=== PATIENT | male | born 1965 | race Caucasian/White ===

== ENCOUNTER 2017-07-23 13:22 | Inpatient (IN) ==
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
--- OUTSIDE RECORDS SUMMARY | 2017-07-23 13:33 | External Medical Summary ---
:1965 Author Organization [facility] Address [address] [place] [address] Phone [phone] Care Team Providers Name Role Phone Jem, Millie Unavailable Unavailable PROBLEMS Unknown Problems ALLERGIES Unknown Allergies SOCIAL HISTORY No smoking Hx information available PLAN OF CARE VITAL SIGNS MEDICATIONS Medication Instructions Dosage Frequency Start Date End Date Duration Status Sertraline HCl Orally Once a day 1 tablet 30 days Active 100 MG for depression RESULTS No Results PROCEDURES No Known procedures IMMUNIZATIONS No Known Immunizations
--- OUTSIDE RECORDS SUMMARY | 2017-07-23 13:33 | External Medical Summary | Referral Summary ---
:1965 Author [facility] Address [address] [place] [address] [place] Fernandez [address] Care Team Providers Name Role Phone Brian Olivares Primary Care Physician Encounter VC Date(s): 08/08/14 - 08/08/14 [facility] [place] [phone] [place] Discharge Diagnosis: Hand swelling Discharge Diagnosis: Cellulitis and abscess of hand, except fingers and thumb Discharge Disposition: 01-Home or Self Care Attending Physician: Brian Olivares MD Admitting Physician: Brian Olivares MD Vital Signs Most recent to oldest [Reference Range]: 1 Blood Pressure [90-140/60-90 mmHg] 128/78 mmHg (08/08/14 1:31 PM) Problem List Condition Effective Dates Status Health [...] Daily, # 30 tabs, 0 Refill(s), Pharmacy: [facility] # [id number], 1 tabs Oral Daily Start Date: 02/11/15 Status: Orderedcitalopram 20 mg oral tablet mg tabs, Oral, Daily, PT REPORTS HE TAKE 20 MG WITH A 40 MG QD., 0 Refill(s) Start Date: 01/27/15 Status: Orderedcitalopram 40 mg oral tablet See Instructions, TAKE ONE TABLET BY MOUTH EVERY DAY, # 30 tabs, 1 Refill(s), [facility] #[id number], TAKE ONE TABLET BY MOUTH EVERY DAY Start Date: 04/07/14 Status: Orderedlisinopril 20 mg oral tablet See Instructions, TAKE ONE TABLET BY MOUTH EVERY DAY, # 30 tabs, 5 Refill(s), eRx: [facility] #[id number], TAKE ONE TABLET BY MOUTH EVERY DAY Start Date: 10/20/14 Status: OrderedMobic 7.5 mg oral tablet 7.5 mg 1 tabs, Oral, BID, # 60 tabs, 0 Refill(s), Pharmacy: [facility] # [id number], 1 tabs Oral BID Start Date: 01/27/15 Status: OrderedNorco 7.5 mg-325 mg oral tablet 1 tabs, Oral, q4hr, as needed for pain, # 60 tabs, 0 Refill(s) Start Date: 02/16/15 Status: OrderedProAir RespiClick 90 mcg/inh inhalation powder 1 puffs, Inhalation, QID, as needed for wheezing., # 1 Each, 2 Refill(s), Pharmacy: [facility]#[id number] Start Date: 01/21/15 Status: OrderedStiolto Respimat Stiolto [...] Extracted from: Title: Ambulatory Patient Education Author: Brian Olivares MD Date: 08/10/14 Family Medicine Cellulitis Cellulitis is an infection of the skin and the tissue beneath it. The infected area is usually red and tender. Cellulitis occurs most often in the arms and lower legs. CAUSES Cellulitis is caused by bacteria that enter the skin through cracks or cuts in the skin. The most common types of bacteria that cause cellulitis are Staphylococcus and Streptococcus. SYMPTOMS Redness and warmth. Swelling. Tenderness or pain. Fever. DIAGNOSIS Your caregiver can usually determine what is wrong based on a physical exam. Blood tests may also be done. TREATMENT Treatment usually involves taking an antibiotic medicine. HOME CARE INSTRUCTIONS Take your antibiotics as directed. Finish them even if you start to feel better. Keep the infected arm or leg elevated to reduce swelling. Apply a warm cloth to the affected area up to 4 times per day to relieve pain. Only take [id number] or prescription medicines for pain, discomfort , or fever as directed by your caregiver. Keep all follow-up appointments as directed by your caregiver. SEEK MEDICAL CARE IF: You notice red streaks coming from the infected area. Your red area gets larger or turns dark in color. Your bone or joint underneath the infected area becomes painful after the skin has healed. Your infection returns in the same area or another area. You notice a swollen bump in the infected area. You develop new symptoms. SEEK IMMEDIATE MEDICAL CARE IF: You have a fever. You feel very sleepy. You develop vomiting or diarrhea. You have a general ill feeling (malaise ) with muscle aches and pains. MAKE SURE YOU: Understand these instructions. Will watch your condition. Will get help right away if you are not doing well or get worse. Document Released: 11/30/2005 Document Revised: 08/21/2012 Document Reviewed: 05/07/2012 [employer] Patient Information 2014 [employer]. No follow up information was provided. Extracted from: Title: Office Visit Note Author: Brian Olivares MD Date: 08/08/14 Assessment/Plan Cellulitis and abscess of hand, except fingers and thumb Will start the patient on Keflex and Medrol dose pack and recheck with him next week. Ordered: Office Visit Level 3 Est 97460 Hand swelling Ordered: Office Visit Level 3 Est 77234
--- OUTSIDE RECORDS SUMMARY | 2017-07-23 13:33 | External Medical Summary | Referral Summary ---
:1965 Author Organization [facility] Address [address] [place] [address] Care Team Providers Name Role Phone Olivares Brian Thompson Primary Care Physician Encounter VC Date(s): 05/21/15 - 05/21/15 [facility] [address] [place] [address] Discharge Disposition: 01-Home or Self Care Attending Physician: Rosalio Siddiqi MD Admitting Physician: Rosalio Siddiqi MD Vital Signs Most recent to oldest [Reference Range]: 1 Temperature Temporal Artery [36.3-37.8 degC] 37.1 degC (05/21/15 7:36 AM) Peripheral Pulse Rate [60-100 bpm] 114 bpm *HI* (05/21/15 7:36 AM) Heart Rate Monitored [60-100 bpm] 107 bpm *HI* (05/21/15 9:30 AM) Respiratory Rate [14-20 br/min] 24 br/min *HI* (05/21/15 9:30 AM) Blood Pressure [90-140/60-90 mmHg] 174/116 mmHg *HI* (05/21/15 9:30 AM) Mean Arterial Pressure, Cuff 135 mmHg (05/21/15 9:30 AM) SpO2 98 % (05/21/15 9:30 AM) Problem List Condition Effective Dates Status [...] Daily, # 30 tabs, 0 Refill(s), Pharmacy: [facility] # [id number], 1 tabs Oral Daily Start Date: 02/11/15 Status: Orderedazithromycin 250 mg oral tablet See Instructions, Take 1 tab Mon, Mon, and Monday, # 12 tabs, 3 Refill(s), Pharmacy: [facility] #[id number], Take 1 tab Mon, Mon, and Monday Start Date: 05/21/15 Status: Orderedcitalopram 20 mg oral tablet mg tabs, Oral, Daily, PT REPORTS HE TAKE 20 MG WITH A 40 MG QD., 0 Refill(s) Start Date: 01/27/15 Status: Orderedcitalopram 40 mg oral tablet See Instructions, TAKE ONE TABLET BY MOUTH EVERY DAY, # 30 tabs, 0 Refill(s), Pharmacy: [facility] #[id number], Pt needs appointment before additional refills will be sent., TAKE ONE TABLET BY MOUTH EVERY DAY Start Date: 04/14/15 Status: Orderedgabapentin 300 mg oral capsule 300 mg 1 caps, Oral, TID, # 270 caps, 0 Refill(s), Pharmacy: [facility], 1 caps Oral TID Start Date: 05/19/15 Status: Orderedindomethacin 25 mg oral capsule See Instructions, TAKE ONE CAPSULE BY MOUTH THREE TIMES A DAY WITH FOOD, # 30 caps, eRx: [facility] #[id number], TAKE ONE CAPSULE BY MOUTH THREE TIMES A DAY WITH FOOD Start Date: 02/19/15 Status: Orderedlisinopril 20 mg oral tablet See Instructions, TAKE ONE TABLET BY MOUTH EVERY DAY, # 30 tabs, 0 Refill(s), Pharmacy: [facility] #[id number] Start Date: 04/14/15 Status: OrderedMobic 7.5 mg oral tablet 7.5 mg 1 tabs, Oral, BID, # 60 tabs, 0 Refill(s), Pharmacy: [facility] # [id number], 1 tabs Oral BID Start Date: 01/27/15 Status: OrderedpredniSONE 20 mg oral tablet See Instructions, 3 tabs x 3days; 2 tabs x3 days; 1 tab x3 days, # 18 tabs, 0 Refill(s), Pharmacy: [facility] #[id number], 3 tabs x 3days; 2 tabs x3 days; 1 tab x3 days Start Date: 05/01/15 Status: OrderedpredniSONE 20 mg oral tablet See Instructions, 3 tabs x 3days; 2 tabs x3 days; 1 tab x3 days, # 18 tabs, 0 Refill(s), Pharmacy: [facility] #[id number], 3 tabs x 3days; 2 tabs x3 days; 1 tab x3 days Start Date: 03/10/15 Status: OrderedSymbicort 160 mcg-4.5 mcg/inh inhalation aerosol 2 puffs, Inhalation, BID, # 1 Each, 0 Refill(s), samples given to patient (Rx) Start Date: 05/11/15 Status: OrderedZocor 40 mg oral tablet 1 tabs, Oral, Bedtime (once a day), # 30 tabs, 0 Refill(s) Start Date: 08/22/13 Status: Ordered Results No data available for this section Immunizations Vaccine Date Refusal Reason tetanus/diphth/pertuss (Tdap) adult/adol 08/05/10 Procedures Procedure Date Related Diagnosis Body Site Bronchoscopy - SN1 05/21/15 Open reduction and internal fixation of fracture - right 5th metacarpal 1auto-populated from documented surgical case Social History Social History Type Response Smoking Status Never smoker Assessment and Plan No data available for this section
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
--- OUTSIDE RECORDS SUMMARY | 2017-07-23 13:34 | External Medical Summary | Referral Summary ---
:1965 Author [facility] Address [address] [place] [address] [place] Fernandez [address] Care Team Providers Name Role Phone Brian Olivares Primary Care Physician Encounter VC Date(s): 03/04/15 - 03/04/15 [facility] [place] [phone] [place] Discharge Diagnosis: Pain in right foot Discharge Disposition: 01-Home or Self Care Attending Physician: Liz Kim PA-C Admitting Physician: Liz Kim PA-C Vital Signs Most recent to oldest [Reference Range]: 1 Apical Heart Rate [60-100 bpm] 96 bpm (03/04/15 9:26 AM) Blood Pressure [90-140/60-90 mmHg] 144/98 mmHg *HI* (03/04/15 9:26 AM) Problem List Condition Effective Dates Status [...] Daily, # 30 tabs, 0 Refill(s), Pharmacy: [facility] # [id number], 1 tabs Oral Daily Start Date: 02/11/15 Status: Orderedcitalopram 20 mg oral tablet mg tabs, Oral, Daily, PT REPORTS HE TAKE 20 MG WITH A 40 MG QD., 0 Refill(s) Start Date: 01/27/15 Status: Orderedcitalopram 40 mg oral tablet See Instructions, TAKE ONE TABLET BY MOUTH EVERY DAY, # 30 tabs, 1 Refill(s), eRx: [facility] #[id number], TAKE ONE TABLET BY MOUTH EVERY DAY Start Date: 04/07/14 Status: Orderedindomethacin 25 mg oral capsule See Instructions, TAKE ONE CAPSULE BY MOUTH THREE TIMES A DAY WITH FOOD, # 30 caps, eRx: [facility] #[id number], TAKE ONE CAPSULE BY MOUTH THREE TIMES A DAY WITH FOOD Start Date: 02/19/15 Status: OrderedKeflex 500 mg oral capsule 500 mg 1 caps, Oral, QID, Patient is to call with report in 48 hours., X 10 days , # 40 caps, 0 Refill(s), Pharmacy: [facility] #[id number], 1 caps Oral QID, x10 days,Instr:Patient is to call with report in 48 hours. Start Date: 02/24/15 Stop Date: 03/06/15 Status: Orderedlisinopril 20 mg oral tablet See Instructions, TAKE ONE TABLET BY MOUTH EVERY DAY, # 30 tabs, 5 Refill(s), eRx: [facility] #[id number], TAKE ONE TABLET BY MOUTH EVERY DAY Start Date: 10/20/14 Status: OrderedMobic 7.5 mg oral tablet 7.5 mg 1 tabs, Oral, BID, # 60 tabs, 0 Refill(s), Pharmacy: [facility] # [id number], 1 tabs Oral BID Start Date: 01/27/15 Status: OrderedNorco 7.5 mg-325 mg oral tablet 1 tabs, Oral, q4hr, as needed for pain, # 60 tabs, 0 Refill(s) Start Date: 02/16/15 Status: OrderedProAir RespiClick 90 mcg/inh inhalation powder 1 puffs, Inhalation, QID, as needed for wheezing., # 1 Each, 2 Refill(s), Pharmacy: [facility]#[id number] Start Date: 01/21/15 Status: OrderedStiolto Respimat Stiolto [...] Patient Education Author: Liz Kim PA-C Date: 03/04/15 Home Health Care Cellulitis Cellulitis is an [...] 11/30/2005 Document Revised: 07/07/2014 Document Reviewed: 05/07/2012 [facility] Patient Information 2015 [employer] [facility]. This information is not intended to replace advice given to you by your health care provider. Make sure you discuss any questions you have with your health care provider. No follow up information was provided. Extracted from: Title: Office Visit Note Author: Liz Kim PA-C Date: 03/04/15 Assessment/Plan Pain in right foot The foot does look much better than it had a couple weeks ago. He still has some pain to the foot, though. Will have him increase to the prescribed QID on the Keflex until gone. He can also continue with the Allopurinol and Indomethacin. Will try a Medrol Dose Pack now, to see if this helps. Also advised to rest it, and ice the area. Call if not improving. Ordered: Office Visit Level 3 Est 49921
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
--- OUTSIDE RECORDS SUMMARY | 2017-07-23 13:34 | External Medical Summary ---
:1965 Author Organization [facility]. Summary purpose CCDA Sent to [facility] Chief Complaint and Reason for Visit Admit Diagnosis 1 htn Problem list No authorized problems tracked for continuity of care are available for this visit. Encounters No authorized problems tracked for encounter diagnoses are available for this visit. Medications No medications recorded for this patient visit Allergies, adverse reactions, alerts No allergy information is available for this patient. Immunizations No immunizations recorded for this patient visit Relevant diagnostic tests and/or laboratory data No authorized results are available for this patient visit History of procedures No procedures recorded for this patient visit. Functional status No functional or cognitive status observations are available for this visit. Vital signs No authorized vital signs are available for this visit. Social history No Social History or smoking status observations were recorded for this visit. ( Unknown if ever smoked.) Treatment Plan No treatment plan text is available for this visit. Hospital discharge instructions No discharge instruction text is available for this visit.
--- OUTSIDE RECORDS SUMMARY | 2017-07-23 13:34 | External Medical Summary ---
:1965 Author Organization [facility] Address [address] [place] [address] Phone [phone] Care Team Providers Name Role Phone JemMillie [...]
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
--- OUTSIDE RECORDS SUMMARY | 2017-07-23 13:34 | External Medical Summary | Referral Summary ---
:1965 Author Organization [facility] Address [address] [place] [address] Care Team Providers Name Role Phone Olivares Brian Jay Primary Care Physician Encounter VC Date(s): 05/11/15 - 05/11/15 [facility] [address] [place] [address] [place] Discharge Diagnosis: Inspiratory stridor Discharge Diagnosis: Obesity Discharge Diagnosis: Shortness of breath Discharge Disposition: -Home or Self Care Attending Physician: Rosalio Siddiqi MD Admitting Physician: Rosalio Siddiqi MD Vital Signs Most recent to oldest [Reference Range]: 1 Peripheral Pulse Rate [60-100 bpm] 116 bpm *HI* (05/11/15 2:50 PM) Respiratory Rate [14-20 br/min] 32 br/min *HI* (05/11/15 2:50 PM) Blood Pressure [90-140/60-90 mmHg] 108/70 mmHg (05/11/15 2:50 PM) SpO2 96 % (05/11/15 2:50 PM) Problem List Condition Effective Dates Status [...] Pharmacy: [facility] # [id number], 1 tabs Oral Daily Start Date: 02/11/15 Status: Orderedcitalopram 20 mg oral tablet mg tabs, Oral, Daily, PT REPORTS HE TAKE 20 MG WITH A 40 MG QD., 0 Refill(s) Start Date: 01/27/15 Status: Orderedcitalopram 40 mg oral tablet See Instructions, TAKE ONE TABLET BY MOUTH EVERY DAY, # 30 tabs, 0 Refill(s), Pharmacy: [facility] #[id number], Pt needs appointment before additional refills will be sent., TAKE ONE TABLET BY MOUTH EVERY DAY Start Date: 04/14/15 Status: Orderedgabapentin 300 mg oral capsule See Instructions, Take 1 cap PO QD x 2 days, 1 cap PO BID x 2 days, then 1 caps Oral TID, # 90 caps,0 Refill(s), Pharmacy: [facility] #[id number], Take 1 cap PO QD x 2 days, 1 cap PO BID x 2 days, then 1 caps Oral TID Start Date: 05/01/15 Status: Orderedindomethacin 25 mg oral capsule See Instructions, TAKE ONE CAPSULE BY MOUTH THREE TIMES A DAY WITH FOOD, # 30 caps, eRx: [facility] #[id number], TAKE ONE CAPSULE BY MOUTH THREE TIMES A DAY WITH FOOD Start Date: 02/19/15 Status: Orderedlisinopril 20 mg oral tablet See Instructions, TAKE ONE TABLET BY MOUTH EVERY DAY, # 30 tabs, 0 Refill(s), Pharmacy: [facility] #[id number] Start Date: 04/14/15 Status: OrderedMobic 7.5 mg oral tablet 7.5 mg 1 tabs, Oral, BID, # 60 tabs, 0 Refill(s), Pharmacy: [facility] # [id number], 1 tabs Oral BID Start Date: 01/27/15 Status: OrderedpredniSONE 20 mg oral tablet See Instructions, 3 tabs x 3days; 2 tabs x3 days; 1 tab x3 days, # 18 tabs, 0 Refill(s), Pharmacy: [facility] #[id number], 3 tabs x 3days; 2 tabs x3 days; 1 tab x3 days Start Date: 05/01/15 Status: OrderedpredniSONE 20 mg oral tablet See Instructions, 3 tabs x 3days; 2 tabs x3 days; 1 tab x3 days, # 18 tabs, 0 Refill(s), Pharmacy: [facility] #[id number], 3 tabs x 3days; 2 tabs x3 [...] and Plan Extracted from: Title: Office Visit Note Author: Rosalio Siddiqi MD Date: 05/11/15 Assessment/Plan Inspiratory stridor 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 Shortness of breath likely due to airway obstructiion and restriction from obesity. He notes some improvement iwth symbicort, previously. will have him on symbicort. Orders: budesonide-formoterol, 2 puffs, Inhalation, BID, # 1 Each, 0 Refill(s ), samples given to patient (Rx) I have reviewed the patientsradiology and imaging results I have reviewed old records I have reviewed the literature I have discussed the plan of care with the patient
--- OUTSIDE RECORDS SUMMARY | 2017-07-23 13:34 | External Medical Summary ---
:1965 Author Organization [facility] Address [address] [place] [address] Phone [phone] Care Team Providers Name Role Phone Millie Parish Unavailable Unavailable PROBLEMS Unknown Problems ALLERGIES No Known Allergies SOCIAL HISTORY Never Assessed PLAN OF CARE Activity Details Follow Up as scheduled Reason:null VITAL SIGNS Height 67 in 2016-11-25 Weight 253 lbs 8 oz lbs 2016-11-25 BMI 39.70 kg/m2 2016-11-25 Heart Rate 99 /min 2016-11-25 Temperature 97.7 degrees Fahrenheit 2016-11-25 Blood pressure systolic 125 mm Hg 2016-11-25 Blood pressure diastolic 86 mm Hg 2016-11-25 MEDICATIONS Medication Instructions Dosage Frequency Start Date End Date Duration Status tramadol 50mg orally as needed Dec, 30 days Active every 12 hours 2016 Lisinopril 20 Orally Once a day 1 tablet 24h 30 days Active MG Sertraline HCl Orally Once a day 1 [...]
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
--- OUTSIDE RECORDS SUMMARY | 2017-07-23 13:34 | External Medical Summary ---
:1965 Author Organization [facility] Address [address] [place] [address] Phone [phone] Care Team Providers Name Role Phone Millie Parish Unavailable Unavailable PROBLEMS Unknown Problems ALLERGIES Unknown Allergies SOCIAL HISTORY No smoking Hx information available PLAN OF CARE VITAL SIGNS MEDICATIONS Medication Instructions Dosage Frequency Start End Date Duration Status Date tramadol 50mg orally as needed 1 tab 7 Dec, 30 days Active every 6 hours every 12 2017 hours as needed Sertraline HCl Orally Once a day 1 tablet 24h Active 100 MG Lisinopril 20 Orally Once a day 1 tablet 24h 30 days Active MG RESULTS No Results PROCEDURES No Known procedures IMMUNIZATIONS No Known Immunizations
--- OUTSIDE RECORDS SUMMARY | 2017-07-23 13:34 | External Medical Summary ---
:1965 Author Organization [facility] Address [address] [place] [address] Phone [phone] Care Team Providers Name Role Phone JemMillie albarado Unavailable Unavailable PROBLEMS Unknown Problems ALLERGIES Unknown Allergies SOCIAL HISTORY No smoking Hx information available PLAN OF CARE VITAL SIGNS MEDICATIONS Medication Instructions Dosage Frequency Start Date End Date Duration Status tramadol 50mg orally as needed Dec, 30 days Active every 12 hours 2016 RESULTS No Results PROCEDURES No Known procedures IMMUNIZATIONS No Known Immunizations
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
--- OUTSIDE RECORDS SUMMARY | 2017-07-23 13:34 | External Medical Summary | Referral Summary ---
:1965 Author [facility] Address [address] [place] [address] [place] [address] Care Team Providers Name Role Phone Brian Olivares Primary Care Physician Encounter VC Date(s): 12/02/14 - 12/02/14 [facility] [address] [place] [phone] Discharge Disposition: [...] Daily, # 30 tabs, 0 Refill(s), [facility] [id number], 1 tabs Oral Daily Start Date: 02/11/15 Status: Orderedazithromycin 250 mg oral tablet See Instructions, Take 1 tab Mon, Mon, and Monday, # 12 tabs, 3 Refill(s), [facility]: [facility] #[id number], Take 1 tab Mon, Mon, and Monday Start Date: 05/21/15 Status: Orderedcitalopram 40 mg oral tablet See Instructions, TAKE ONE TABLET BY MOUTH EVERY DAY, # 30 tabs, [facility]Rx: [facility] #[id number], TAKEONE TABLET BY MOUTH EVERY DAY Start Date: 06/05/15 Status: Orderedgabapentin 300 mg oral capsule 300 mg 1 caps, Oral, TID, # 270 caps, 0 Refill(s), [facility]: [facility], 1 caps Oral TID Start Date: 05/19/15 Status: Orderedindomethacin 25 mg oral capsule See Instructions, TAKE ONE CAPSULE BY MOUTH THREE TIMES A DAY WITH FOOD, # 30 caps, eRx: [facility] #[id number], TAKE ONE CAPSULE BY MOUTH THREE TIMES A DAY WITH FOOD Start Date: 02/19/15 Status: Orderedlisinopril 20 mg oral tablet See Instructions, TAKE ONE TABLET BY MOUTH EVERY DAY, # 30 tabs, 0 Refill(s), Pharmacy: [facility] #[id number] Start Date: 04/14/15 Status: OrderedMobic 7.5 mg oral tablet 7.5 mg 1 tabs, Oral, BID, # 60 tabs, 0 Refill(s), Pharmacy: [facility] # [id number], 1 tabs Oral BID Start Date: 01/27/15 Status: OrderedpredniSONE 20 mg oral tablet See Instructions, 3 tabs x 3days; 2 tabs x3 days; 1 tab x3 days, # 18 tabs, 0 Refill(s), Pharmacy: [facility] #[id number], 3 tabs x 3days; 2 tabs x3 days; 1 tab x3 days Start Date: 05/01/15 Status: OrderedpredniSONE 20 mg oral tablet See Instructions, 3 tabs x 3days; 2 tabs x3 days; 1 tab x3 days, # 18 tabs, 0 Refill(s), Pharmacy: [facility] #[id number], 3 tabs x 3days; 2 tabs x3 [...] 11/30/2005 Document Revised: 07/07/2014 Document Reviewed: 05/07/2012 [facility] Patient Information 2015 [employer] [facility]. This information is not intended to replace [...] arm. Ordered: Office Visit Level 3 Est 04106 Sedimentation Rate Slings A4565 Uric Acid Cellulitis of hand Ordered: CBC w/ Differential Office Visit Level 3 Est 68864 Slings A4565 Orders: ciprofloxacin, 500 mg 1 tabs, Oral, q12hr, X 10 days, # 20 tabs, 0 Refill(s) HYDROcodone-acetaminophen, 1 tabs, Oral, q4hr, as needed for pain, # 60 tabs , 0 Refill(s)
--- OUTSIDE RECORDS SUMMARY | 2017-07-23 13:34 | External Medical Summary ---
:1965 Author Organization [facility] Address [address] [place] [address] Phone [phone] Care Team Providers Name Role Phone Millie Parish Unavailable Unavailable PROBLEMS Unknown Problems ALLERGIES Unknown Allergies SOCIAL HISTORY No smoking Hx information available PLAN OF CARE VITAL SIGNS MEDICATIONS Medication Instructions Dosage Frequency Start End Date Duration Status Date tramadol 50mg orally as needed 1 tab 7 Dec, 30 days Active every 6 hours every 12 2017 hours as needed Lisinopril 20 Orally Once a day 1 tablet 24h 30 days Active MG RESULTS No Results PROCEDURES No Known procedures IMMUNIZATIONS No Known Immunizations
--- OUTSIDE RECORDS SUMMARY | 2017-07-23 13:34 | External Medical Summary | Referral Summary ---
:1965 Author [facility] Address [address] [place] [address] [place] [phone] Care Team Providers Name Role Phone Brian Olivares Primary Care Physician Encounter VC Date(s): 06/29/16 - 06/29/16 [facility] [address] [place] [phone]- Discharge Diagnosis: Generalized rash Discharge Disposition: 01-Home or Self Care Attending Physician: Liz Kim PA-C Admitting Physician: Liz Kim PA-C Vital Signs Most recent to oldest [Reference Range]: 1 Temperature Tympanic [36.6-38.1 degC] 36.8 degC (06/29/16 1:38 PM) Apical Heart Rate [60-100 bpm] 100 bpm (06/29/16 1:38 PM) Blood Pressure [90-140/60-90 mmHg] 142/84 mmHg *HI* (06/29/16 1:38 PM) Problem List Condition Effective Dates Status [...] DAILY, # 30 tabs, 1 Refill(s), eRx: [facility] #[id number], TAKE ONE TABLET BY MOUTH DAILY Start Date: 09/18/15 Status: Orderedcitalopram 20 mg oral tablet 20 mg 1 tabs, Oral, Daily, take a 20 mg and a 40 mg qd + 60 mg qd, 0 Refill(s) Start Date: 06/29/16 Status: Orderedcitalopram 40 mg oral tablet See Instructions, TAKE ONE TABLET BY MOUTH EVERY DAY, # 30 tabs, eRx: [facility] #[id number], TAKEONE TABLET BY MOUTH EVERY DAY Start Date: 06/05/15 Status: Orderedlisinopril 20 mg oral tablet See Instructions, TAKE ONE TABLET BY MOUTH EVERY DAY, # 30 tabs, eRx: [facility] #[id number] Start Date: 05/25/16 Status: OrderedpredniSONE 20 mg oral tablet 40 mg 2 tabs, Oral, Daily, X 5 days, # 10 tabs, 0 Refill(s), Pharmacy: [facility] #[id number], 2 tabs Oral Daily,x5 days Start Date: 06/29/16 Stop Date: 07/04/16 Status: OrderedZocor 40 mg oral tablet 1 tabs, Oral, Bedtime (once a day), # 30 tabs, 0 Refill(s) Start Date: 08/22/13 Status: Ordered Results No data available for this section Immunizations Given and Recorded Vaccine Date Status Refusal Reason tetanus/diphth/pertuss (Tdap) adult/adol 08/05/10 Recorded Procedures Procedure Date Related Diagnosis Body Site Bronchoscopy - SN1 05/21/15 Open reduction and internal fixation of fracture - right 5th metacarpal 1auto-populated from documented surgical case Social History Social History Type Response Smoking Status Never smoker Assessment and Plan Extracted from: Title: Office Visit Note- Rash Author: Liz Kim PA-C Date: Assessment/Plan Generalized rash Pt was given Solu-Medrol 80mg IM in clinic today and will also follow with prednisone x 5 days. Pt is to continue with Benadryl (do not exceed 300mg daily) , and may also try a 2nd generation antihist amine or even an U4ymsfb (ie ranitidine). May continue with Calamine lotion prn. He is to call if the rash is worsening or coming back after done with the steroids, and can do a longer tapering dose. Ordered: predniSONE, 40 mg 2 tabs, Oral, Daily, X 5 days, # 10 tabs, 0 Refill(s), Pharmacy: [facility] #[id number], 2 tabs Oral Daily,x5 days Office Visit Level 3 Est 88514
--- OUTSIDE RECORDS SUMMARY | 2017-07-23 13:34 | External Medical Summary | Referral Summary ---
:1965 Author Organization [facility] Address [address] [place] [address] [place] [phone] Care Team Providers Name Role Phone Brian Olivares Primary Care Physician Encounter VC Date(s): 09/08/14 - 09/08/14 [facility] [address] [place] [phone] [place] Discharge Disposition: 01-Home or Self Care Attending Physician: Brian Olivares MD Admitting Physician: Brian Olivares MD Vital Signs Most recent to oldest [Reference Range]: 1 Temperature Tympanic [36.6-38.1 degC] 37.9 degC (09/08/14 2:21 PM) Peripheral Pulse Rate [60-100 bpm] 124 bpm *HI* (09/08/14 2:21 PM) Blood Pressure [90-140/60-90 mmHg] 124/86 mmHg (09/08/14 2:21 PM) Problem List Condition Effective Dates Status [...] Daily, # 30 tabs, 0 Refill(s), Pharmacy: [facility] # [id number], 1 tabs Oral Daily Start Date: 02/11/15 Status: Orderedcitalopram 20 mg oral tablet mg tabs, Oral, Daily, PT REPORTS HE TAKE 20 MG WITH A 40 MG QD., 0 Refill(s) Start Date: 01/27/15 Status: Orderedcitalopram 40 mg oral tablet See Instructions, TAKE ONE TABLET BY MOUTH EVERY DAY, # 30 tabs, 1 Refill(s), eRx: [facility] #[id number], TAKE ONE TABLET BY MOUTH EVERY DAY Start Date: 04/07/14 Status: Orderedindomethacin 25 mg oral capsule See Instructions, TAKE ONE CAPSULE BY MOUTH THREE TIMES A DAY WITH FOOD, # 30 caps, eRx: [facility] #[id number], TAKE ONE CAPSULE BY MOUTH THREE TIMES A DAY WITH FOOD Start Date: 02/19/15 Status: Orderedlisinopril 20 mg oral tablet See Instructions, TAKE ONE TABLET BY MOUTH EVERY DAY, # 30 tabs, 5 Refill(s), eRx: [facility] #[id number], TAKE ONE TABLET BY MOUTH EVERY DAY Start Date: 10/20/14 Status: OrderedMobic 7.5 mg oral tablet 7.5 mg 1 tabs, Oral, BID, # 60 tabs, 0 Refill(s), Pharmacy: [facility] # [id number], 1 tabs Oral BID Start Date: 01/27/15 Status: OrderedNorco 7.5 mg-325 mg oral tablet 1 tabs, Oral, q4hr, as needed for pain, # 60 tabs, 0 Refill(s) Start Date: 02/16/15 Status: OrderedpredniSONE 20 mg oral tablet See Instructions, 3 tabs x 3days; 2 tabs x3 days; 1 tab x3 days, # 18 tabs, 0 Refill(s), Pharmacy: [facility] #[id number], 3 tabs x 3days; 2 tabs x3 days; 1 tab x3 days Start Date: 03/10/15 Status: OrderedProAir RespiClick 90 mcg/inh inhalation powder 1 puffs, Inhalation, QID, as needed for wheezing., # 1 Each, 2 Refill(s), Pharmacy: [facility]#[id number] Start Date: 01/21/15 Status: OrderedStiolto Respimat Stiolto [...] Patient Education Author: Brian Olivares MD Date: 09/08/14 Family Medicine Acute Bronchitis Bronchitis is inflammation of the airways that extend from the windpipe into the lungs (bronchi ). The inflammation often causes mucus to develop. This leads to a cough, which is the most common symptom of bronchitis. In acute bronchitis, the condition usually develops suddenly and goes away over time, usually in a couple weeks. Smoking, allergies, and asthma can make bronchitis worse. Repeated episodes of bronchitis may cause further lung problems. CAUSES Acute bronchitis is most often caused by the same virus that causes a cold. The virus can spread from person to person (contagious ). SIGNS AND SYMPTOMS Cough. Fever. Coughing up mucus. Body aches. Chest congestion. Chills. Shortness of breath. Sore throat. DIAGNOSIS Acute bronchitis is usually diagnosed through a physical exam. Tests, such as chest X-rays, are sometimes done to rule out other conditions. TREATMENT Acute bronchitis usually goes away in a couple weeks. Often times, no medical treatment is necessary. Medicines are sometimes given for relief of fever or cough. Antibiotics are usually not needed but m ay be prescribed in certain situations. In some cases, an inhaler may be recommended to help reduce shortness of breath and control the cough. A cool mist vaporizer may also be used to help thin bronchi al secretions and make it easier to clear the chest. HOME CARE INSTRUCTIONS Get plenty of rest. Drink enough fluids to keep your urine clear or pale yellow (unless you have a medical condition that requires fluid restriction). Increasing fluids may help thin your secretions and will prevent dehydration. Only take cddf-kyx-armacee or prescription medicines as directed by your health care provider. Avoid smoking and secondhand smoke. Exposure to cigarette smoke or irritating chemicals will make bronchitis worse. If you are a smoker, consider using nicotine gum or skin patches to help control withdrawal symptoms. Quitting smoking will help your lungs heal faster. Reduce the chances of another bout of acute bronchitis by washing your hands frequently, avoiding people with cold symptoms, and trying not to touch your hands to your mouth, nose, or eyes. Follow up with your health care provider as directed. SEEK MEDICAL CARE IF: Your symptoms do not improve after 1 week of treatment. SEEK IMMEDIATE MEDICAL CARE IF: You develop an increased fever or chills. You have chest pain. You have severe shortness of breath. You have bloody sputum. You develop dehydration. You develop fainting. You develop repeated vomiting. You develop a severe headache. MAKE SURE YOU: Understand these instructions. Will watch your condition. Will get help right away if you are not doing well or get worse. Document Released: 03/30/2005 Document Revised: 10/23/2013 Document Reviewed: 08/13/2013 [facility] Patient Information 2014 [employer]. Laryngitis At the top of your windpipe is your voice box. It is the source of your voice. Inside your voice box are 2 bands of muscles called vocal cords. When you breathe, your vocal cords are relaxed and open so that air can get into the lungs. When you decide to say something, these cords come together and vibrate. The sound from these vibrations goes into your throat and comes out through your mouth as sound. Laryngitis is an inflammation of the vocal cords that causes hoarseness, cough , loss of voice, sore throat, and dry throat. Laryngitis can be temporary ( acute ) or long-term (chronic ). Most cases of ac [place] laryngitis improve with time.Chronic laryngitis lasts for more than 3 weeks. CAUSES Laryngitis can often be related to excessive smoking, talking, or yelling, as well as inhalation of toxic fumes and allergies. Acute laryngitis is usually caused by a viral infection, vocal strain, desiree les or mumps, or bacterial infections. Chronic laryngitis is usually caused by vocal cord strain, vocal cord injury, postnasal drip, growths on the vocal cords , or acid reflux. SYMPTOMS Cough. Sore throat. Dry throat. RISK FACTORS Respiratory infections. Exposure to irritating substances, such as cigarette smoke, excessive amounts of alcohol, stomach acids, and workplace chemicals. Voice trauma, such as vocal cord injury from shouting or speaking too loud. DIAGNOSIS Your cargiver will perform a physical exam. During the physical exam, your caregiver will examine your throat. The most common sign of laryngitis is hoarseness. Laryngoscopy may be necessary to confirm the diagnosis of this condition. This procedure allows your caregiver to look into the larynx. HOME CARE INSTRUCTIONS Drink enough fluids to keep your urine clear or pale yellow. Rest until you no longer have symptoms or as directed by your caregiver. Breathe in moist air. Take all medicine as directed by your caregiver. Do not smoke. Talk as little as possible (this includes whispering). Write on paper instead of talking until your voice is back to normal. Follow up with your caregiver if your condition has not improved after 10 days. SEEK MEDICAL CARE IF: You have trouble breathing. You cough up blood. You have persistent fever. You have increasing pain. You have difficulty swallowing. MAKE SURE YOU: Understand these instructions. Will watch your condition. Will get help right away if you are not doing well or get worse. Document Released: 02/20/2006 Document Revised: 05/14/2012 Document Reviewed: 04/28/2011 [facility] Patient Information 2014 [employer]. No follow up information was provided. Extracted from: Title: Office Visit Note Author: Brian Olivares MD Date: 09/08/14 Assessment/Plan Acute bronchitis Augmentin, Mucinex DM 1200mg bid and Lilli nasal spray. Ordered: Office Visit Level 4 Est 23957 Acute rhinitis Ordered: Office Visit Level 4 Est 56069 Hay fever Ordered: Office Visit Level 4 Est 68480 Orders: amoxicillin-clavulanate, 1 tabs, Oral, q12hr, X 10 days, # 20 tabs, 0 Refill(s), Pharmacy: [facility] #[id number]
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
--- OUTSIDE RECORDS SUMMARY | 2017-07-23 13:34 | External Medical Summary | Referral Summary ---
:1965 Author Organization [facility] Address [address] [place] [address] [place] [address] Care Team Providers Name Role Phone Brian Olivares Primary Care Physician Encounter VC Date(s): 03/02/16 - 03/02/16 [facility] [place] [phone] Discharge Diagnosis: Diffuse urticaria Discharge Disposition: 01-Home or Self Care Attending Physician: Liz Kim PA-C Admitting Physician: Liz Kim PA-C Vital Signs Most recent to oldest [Reference Range]: 1 Temperature Tympanic [36.6-38.1 degC] 36.6 degC (03/02/16 9:29 AM) Peripheral Pulse Rate [60-100 bpm] 110 bpm *HI* (03/02/16 9:29 AM) Blood Pressure [90-140/60-90 mmHg] 122/88 mmHg (03/02/16 9:29 AM) SpO2 99 % (03/02/16 9:29 AM) Problem List Condition Effective Dates Status [...] DAILY, # 30 tabs, 1 Refill(s), eRx: [facility] #[id number], TAKE ONE TABLET BY MOUTH DAILY Start Date: 09/18/15 Status: Orderedazithromycin 250 mg oral tablet See Instructions, Take 1 tab Mon, Mon, and Monday, # 12 tabs, 3 Refill(s), Pharmacy: [facility] #[id number], Take 1 tab Mon, Mon, and Monday Start Date: 05/21/15 Status: Orderedcitalopram 40 mg oral tablet See Instructions, TAKE ONE TABLET BY MOUTH EVERY DAY, # 30 tabs, eRx: [facility] #[id number], TAKEONE TABLET BY MOUTH EVERY DAY Start Date: 06/05/15 Status: Orderedgabapentin 300 mg oral capsule See Instructions, TAKE 1 CAPSULE BY MOUTH DAILY FOR 2 DAYS, 1 CAPSULE BY MOUTH TWICE A DAY FOR 2 DAYS THEN 1 CAPSULE BY MOUTH THREE TIMES A DAY, # 90 caps, eRx : [facility] #[id number], TAKE 1 CAPSULEBY MOUTH DAILY FOR 2 DAYS, 1 CAPSULE BY MOUTH TWI... Start Date: 07/27/15 Status: Orderedgabapentin 300 mg oral capsule 300 mg 1 caps, Oral, TID, dc previous rx sent, # 90 caps, 2 Refill(s), Pharmacy : [facility] #[id number], 1 caps Oral TID,Instr:dc previous rx sent Start Date: 07/28/15 Status: Orderedgabapentin 300 mg oral capsule 300 mg 1 caps, Oral, TID, 06/22: Increase to 2 tabs PO QAM, 1 tab PO noon, and 2 tabs PO HS, # 270 caps, 0 Refill(s), Pharmacy: [facility], 1 caps Oral TID Start Date: 05/19/15 Status: Orderedlisinopril 20 mg oral tablet See Instructions, TAKE ONE TABLET BY MOUTH EVERY DAY, # 30 tabs, eRx: [facility] #[id number], TAKEONE TABLET BY MOUTH EVERY DAY Start Date: 01/08/16 Status: OrderedMobic 7.5 mg oral tablet 7.5 mg 1 tabs, Oral, BID, # 60 tabs, 0 Refill(s), Pharmacy: [facility] # [id number], 1 tabs Oral BID Start Date: 01/27/15 Status: OrderedpredniSONE 10 mg oral tablet See Instructions, Take 4 tabs PO QD x 4 days, then 3 tabs PO QD x 3 days, then 2 tabs PO QD x 2 days, then 1 tab PO x 1 day., # 30 tabs, 0 Refill(s), Pharmacy : [facility] #[id number], Take 4 tabs PO QD x 4 days, then 3 tabs PO QD x 3 days, then 2 ta... Start Date: 03/02/16 Stop Date: 03/09/16 Status: OrderedSymbicort 160 mcg-4.5 mcg/inh inhalation aerosol 2 puffs, Inhalation, BID, # 1 Each, 0 Refill(s), samples given to patient (Rx) Start Date: 05/11/15 Status: OrderedtraMADol 50 mg oral tablet 50 mg 1 tabs, Oral, q6hr, Fax to [facility] Must last 30 days, # 60 [...] Rash Author: Liz Kim PA-C Date: Assessment/Plan Diffuse urticaria Will send out tapering dose of prednisone x 1 week, and also advised to try Benadryl. Also could continue with Calamine lotion, or may want to try Coconut oil. He it also to try and keep cool and dry. Call or RTC if not improving. Ordered: predniSONE, See Instructions, Take 4 tabs PO QD x 4 days, then 3 tabs PO QD x 3 days, then 2 tabs PO QD x 2 days, then 1 tab PO x 1 day., # 30 tabs, 0 Refill(s), Pharmacy: [facility] #[id number], Take 4 tabs PO QD x 4 days, then 3 tabs PO QD x 3 days, then 2 ta... 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 He was told there was a surgery that could be done at [facility], however, most of the time, the surgery is not beneficial. He is getting his repeat CT chest tomorrow.
--- OUTSIDE RECORDS SUMMARY | 2017-07-23 13:34 | External Medical Summary | Referral Summary ---
:1965 Author Organization [facility] Address [address] [place] [address] Care Team Providers Name Role Phone No PCP, States Primary Care Physician Brian Olivares Primary Care Physician Encounter [facility] [id number] Date(s): 06/09/17 - 06/09/17 [facility] [address] [place] [address] [place] [phone] Encounter Diagnosis Chest pain (Discharge Diagnosis) - 06/09/17 Discharge Disposition: 01-Home or Self Care Attending Physician: Matias Garrido MD Admitting Physician: Matias Garrido MD Vital Signs Most recent to oldest [Reference Range]: 1 Temperature Oral [35.8-37.3 degC] 36.4 degC (06/09/17 2:38 PM) Peripheral Pulse Rate [60-100 bpm] 73 bpm (06/09/17 5:56 PM) Heart Rate Monitored [60-100 bpm] 73 bpm (06/09/17 5:30 PM) Respiratory Rate [14-20 br/min] 14 br/min (06/09/17 5:56 PM) Blood Pressure [90-140/60-90 mmHg] 144/93 mmHg *HI* (06/09/17 5:56 PM) Mean Arterial Pressure, Cuff 112 mmHg (06/09/17 5:30 PM) SpO2 97 % (06/09/17 5:56 PM) Problem List Condition Effective Dates Status [...] Pharmacy: [facility] # [id number] Start Date: 07/04/16 Status: Orderedcitalopram 40 mg oral tablet See Instructions, TAKE ONE TABLET BY MOUTH EVERY DAY, # 30 tabs, eRx: [facility] #[id number], TAKEONE TABLET BY MOUTH EVERY DAY Start Date: 06/05/15 Status: OrderedFLUoxetine 40 mg, Oral, Daily, 0 Refill(s) Start Date: 06/09/17 Status: Orderedlisinopril 20 mg oral tablet See Instructions, TAKE ONE TABLET BY MOUTH EVERY DAY, # 30 tabs, eRx: [facility] #[id number] Start Date: 05/25/16 Status: Orderedsertraline 50 mg oral tablet See Instructions, 0.5 tabs oral daily x7 days, then 1 tab oral daily., # 30 tabs , 0 Refill(s), Pharmacy: [facility] #[id number], Pt will taper off Celexa over 6 days, then start the sertraline., 0.5 tabs oral daily x7 days, then 1 tab oral daily. Start Date: 07/08/16 Status: OrderedtraMADol 50 mg oral tablet 50 mg 1 tabs, Oral, q6hr, To [facility] Must last 30 days. Last fill. Needs to establish with newphysician., # 60 tabs, 0 Refill(s) Start Date: 09/27/16 Status: Ordered Results Hematology Most recent to oldest [Reference Range]: 1 WBC [4.8-10.8 10*3/uL] 6.3 10*3/uL (06/09/17 2:55 PM) RBC [4.60-6.20] 4.18 *LOW* (06/09/17 2:55 PM) Hgb [14.0-18.0 gm/dL] 13.9 gm/dL *LOW* (06/09/17 2:55 PM) Hct [42.0-52.0 %] 41.0 % *LOW* (06/09/17 2:55 PM) MCV [82.0-99.0 fL] 98.1 fL (06/09/17 2:55 PM) MCH [27.0-32.0 pg] 33.3 pg *HI* (06/09/17 2:55 PM) MCHC [32.0-36.0 gm/dL] 33.9 gm/dL (06/09/17 2:55 PM) RDW [11.5-14.5 %] 15.6 % *HI* (06/09/17 2:55 PM) Platelet [150-400 10*3/uL] 290 10*3/uL (06/09/17 2:55 PM) MPV [9.4-12.3 fL] 9.3 fL *LOW* (06/09/17 2:55 PM) Immature Granulocytes [0.0-1.0 %] 1.1 % *HI* (06/09/17 2:55 PM) Neutrophils [51-75 %] 64 % (06/09/17 2:55 PM) Lymphocytes [20-46 %] 21 % (06/09/17 2:55 PM) Monocytes [4-11 %] 10 % (06/09/17 2:55 PM) Eosinophils [0-4 %] 3 % (06/09/17 2:55 PM) Basophils [0-2 %] 1 % (06/09/17 2:55 PM) Neutro Absolute [1.90-7.00] 4.03 (06/09/17 2:55 PM) Lymph Absolute [0.80-3.30] 1.32 (06/09/17 2:55 PM) [place] Absolute [0.30-1.00] 0.60 (06/09/17 2:55 PM) Eos Absolute [0.00-0.50] 0.18 (06/09/17 2:55 PM) Baso Absolute [0.00-0.20] 0.07 (06/09/17 2:55 PM) Nucleated RBC Automated [0 /100 WBC] 0.0 /100 WBC (06/09/17 2:55 PM) Chemistry Most recent to oldest [Reference Range]: 1 Sodium Lvl [136-144 mEq/L] 137 mEq/L (06/09/17 2:55 PM) Potassium Lvl [3.6-5.1 mEq/L] 3.8 mEq/L (06/09/17 2:55 PM) Chloride [99-109 mEq/L] 113 mEq/L *HI* (06/09/17 2:55 PM) CO2 [22-32 mEq/L] 19 mEq/L *LOW* (06/09/17 2:55 PM) AGAP [3-20 mEq/L] 5 mEq/L (06/09/17 2:55 PM) BUN [4-20 mg/dL] 20 mg/dL (06/09/17 2:55 PM) Glucose Lvl [70-100 mg/dL] 149 mg/dL *HI* (06/09/17 2:55 PM) Creatinine Lvl [0.64-1.27 mg/dL] 1.13 mg/dL (06/09/17 2:55 PM) eGFR [>60 mL/min] >60 mL/min 1 (06/09/17 2:55 PM) Calcium Lvl [8.6-10.0 mg/dL] 9.1 mg/dL (06/09/17 2:55 PM) Albumin Lvl [3.5-4.8 gm/dL] 4.1 gm/dL (06/09/17 2:55 PM) Total Protein [6.1-7.9 gm/dL] 6.4 gm/dL (06/09/17 2:55 PM) Globulin [1.9-4.3 gm/dL] 2.3 gm/dL (06/09/17 2:55 PM) ALT [17-63 U/L] 33 U/L (06/09/17 2:55 PM) AST [15-41 U/L] 26 U/L (06/09/17 2:55 PM) Alk Phos [26-104 U/L] 38 U/L (06/09/17 2:55 PM) Bili Total [0.2-1.2 mg/dL] 0.6 mg/dL 2 (06/09/17 2:55 PM) Troponin [<0.06 ng/mL] <0.05 ng/mL (06/09/17 2:56 PM) 1Result Comment: Multiply eGFR results by 1.21 for race.2Result Comment: Naproxen, specifically the metabolite O-desmethylnaproxen, may cause spurious elevation in Total Bilirubin levels. Immunizations Given and Recorded Vaccine Date Status Refusal Reason tetanus/diphth/pertuss (Tdap) adult/adol 08/05/10 Recorded Procedures Procedure Date Related Diagnosis Body Site Status Bronchoscopy - SN1 05/21/15 Completed Open reduction and internal fixation of Completed fracture - right 5th metacarpal 1auto-populated from documented surgical case Social History Social History Type Response Smoking Status Never smoker entered on: 08/23/13
--- OUTSIDE RECORDS SUMMARY | 2017-07-23 13:34 | External Medical Summary | Referral Summary ---
:1965 Author Organization [facility] [place] [address] Care Team Providers Name Role Phone Brian Olivares Primary Care Physician Encounter [facility] Date(s): 06/23/15 - 06/23/15 [facility] [address] [place] [phone] [place] Discharge Diagnosis: Left hand pain Discharge Diagnosis: Hypertension Discharge Disposition: 01-Home or Self Care Attending Physician: Liz Kim PA-C Admitting Physician: Liz Kim PA-C Vital Signs Most recent to oldest [Reference Range]: 1 Peripheral Pulse Rate [60-100 bpm] 90 bpm (06/23/15 2:06 PM) Respiratory Rate [14-20 br/min] 18 br/min (06/23/15 2:06 PM) Blood Pressure [90-140/60-90 mmHg] 162/94 mmHg *HI* (06/23/15 2:06 PM) Problem List Condition Effective Dates Status [...] Daily, # 30 tabs, 0 Refill(s), Pharmacy: [facility] # [id number], 1 tabs Oral Daily Start Date: 02/11/15 Status: Orderedazithromycin 250 mg oral tablet See Instructions, Take 1 tab Mon, Mon, and Monday, # 12 tabs, 3 Refill(s), Pharmacy: [facility] #[id number], Take 1 tab Mon, Mon, and Monday Start Date: 05/21/15 Status: Orderedcitalopram 40 mg oral tablet See Instructions, TAKE ONE TABLET BY MOUTH EVERY DAY, # 30 tabs, eRx: [facility] #[id number], TAKEONE TABLET BY MOUTH EVERY DAY Start Date: 06/05/15 Status: Orderedgabapentin 300 mg oral capsule 300 mg 1 caps, Oral, TID, 06/22: Increase to 2 tabs PO QAM, 1 tab PO noon, and 2 tabs PO HS, # 270 caps, 0 Refill(s), Pharmacy: [facility], 1 caps Oral TID Start Date: 05/19/15 Status: Orderedindomethacin 25 mg oral capsule See Instructions, TAKE ONE CAPSULE BY MOUTH THREE TIMES A DAY WITH FOOD, # 30 caps, eRx: [facility] #[id number], TAKE ONE CAPSULE BY MOUTH THREE TIMES A DAY WITH FOOD Start Date: 02/19/15 Status: Orderedlisinopril 20 mg oral tablet See Instructions, TAKE ONE TABLET BY MOUTH EVERY DAY, # 30 tabs, 0 Refill(s), Pharmacy: [facility] #[id number] Start Date: 04/14/15 Status: OrderedMobic 7.5 mg oral tablet 7.5 mg 1 tabs, Oral, BID, # 60 tabs, 0 Refill(s), Pharmacy: [facility] # [id number], 1 tabs Oral BID Start Date: 01/27/15 Status: OrderedpredniSONE 20 mg oral tablet See Instructions, 3 tabs x 3days; 2 tabs x3 days; 1 tab x3 days, # 18 tabs, 0 Refill(s), Pharmacy: [facility] #[id number], 3 tabs x 3days; 2 tabs x3 days; 1 tab x3 days Start Date: 05/01/15 Status: OrderedpredniSONE 20 mg oral tablet See Instructions, 3 tabs x 3days; 2 tabs x3 days; 1 tab x3 days, # 18 tabs, 0 Refill(s), Pharmacy: [facility] #[id number], 3 tabs x 3days; 2 tabs x3 [...] Author: Liz Kim PA-C Date: Family Medicine Hypertension Hypertension, commonly called high blood pressure, is when the force of blood pumping through your arteries is too strong. Your arteries are the blood vessels that carry blood from your heart throughout your body. A blood pressure reading consists of a higher number over a lower number, such as 110/72. The higher number (systolic) is the pressure inside your arteries when your heart pumps. The lower n umber (diastolic) is the pressure inside your arteries when your heart relaxes. Ideally you want your blood pressure below 120/80. Hypertension forces your heart to work harder to pump blood. Your arteries may become narrow or stiff. Having hypertension puts you at risk for heart disease, stroke, and other problems. RISK FACTORS Some risk factors for high blood pressure are controllable. Others are not. Risk factors you cannot control include: Race. You may be at higher risk if you are . Age. Risk increases with age. Gender. Men are at higher risk than women before age 45 years. After age 65, women are at higher risk than men. Risk factors you can control include: Not getting enough exercise or physical activity. Being overweight. Getting too much fat, sugar, calories, or salt in your diet. Drinking too much alcohol. SIGNS AND SYMPTOMS Hypertension does not usually cause signs or symptoms. Extremely high blood pressure (hypertensive crisis) may cause headache, anxiety, shortness of breath , and nosebleed. DIAGNOSIS To check if you have hypertension, your health care provider will measure your blood pressure while you are seated, with your arm held at the level of your heart. It should be measured at least twice us ing the same arm. Certain conditions can cause a difference in blood pressure between your right and left arms. A blood pressure reading that is higher than normal on one occasion does not mean that you need treatment. If it is not clear whether you have high blood pressure, you may be asked to return on a different day to have your blood pressure checked again. Or, you may be asked to monitor your blood pressure at home for 1 or more weeks. TREATMENT Treating high blood pressure includes making lifestyle changes and possibly taking medicine. Living a healthy lifestyle can help lower high blood pressure. You may need to change some of your habits. Lifestyle changes may include: Following the DASH diet. This diet is high in fruits, vegetables, and whole grains. It is low in salt, red meat, and added sugars. Keep your sodium intake below 2,300 mg per day. Getting at least 3045 minutes of aerobic exercise at least 4 times per week. Losing weight if necessary. Not smoking. Limiting alcoholic beverages. Learning ways to reduce stress. Your health care provider may prescribe medicine if lifestyle changes are not enough to get your blood pressure under control, and if one of the following is true: Your systolic blood pressure is above 150. Your diastolic blood pressure is above 90. You have diabetes, and your systolic blood pressure is over 140 or your diastolic blood pressure is over 85. You have heart disease or have had a stroke or heart attack, and your blood pressure is above 130 over 80, which is written as 130/80. HOME CARE INSTRUCTIONS Have your blood pressure rechecked as directed by your health care provider. Take medicines only as directed by your health care provider. Follow the directions carefully. Blood pressure medicines must be taken as prescribed. The medicine does not work as well when you sk ip doses. Skipping doses also puts you at risk for problems. Do not smoke. Monitor your blood pressure at home as directed by your health care provider. SEEK MEDICAL CARE IF: You think you are having a reaction to medicines taken. You have recurrent headaches or feel dizzy. You have swelling in your ankles. You have trouble with your vision. SEEK IMMEDIATE MEDICAL CARE IF: You develop a severe headache or confusion. You have unusual weakness, numbness, or feel faint. You have severe chest or abdominal pain. You vomit repeatedly. You have trouble breathing. MAKE SURE YOU: Understand these instructions. Will watch your condition. Will get help right away if you are not doing well or get worse. This information is not intended to replace advice given to you by your health care provider. Make sure you discuss any questions you have with your health care provider. Document Released: 02/20/2006 Document Revised: 12/09/2014 Document Reviewed: 12/13/2013 [facility] Patient Information 2015 [facility]. Musculoskeletal Pain Musculoskeletal pain is muscle and edvin aches and pains. These pains can occur in any part of the body. Your caregiver may treat you without knowing the cause of the pain. They may treat you if blood o r urine tests, X-rays, and other tests were normal. CAUSES There is often not a definite cause or reason for these pains. These pains may be caused by a type of germ (virus). The discomfort may also come from overuse. Overuse includes working out too hard when your body is not fit. Edvin aches also come from weather changes. Bone is sensitive to atmospheric pressure changes. HOME CARE INSTRUCTIONS Ask when your test results will be ready. Make sure you get your test results. Only take [id number] or prescription medicines for pain, discomfort, or fever as directed by your caregiver. If you were given medications for your condition, do not drive, operate machiner y or power tools, or sign legal documents for 24 hours. Do not drink alcohol. Do not take sleeping pills or other medications that may interfere with treatment. Continue all activities unless the activities cause more pain. When the pain lessens, slowly resume normal activities. Gradually increase the intensity and duration of the activities or exercise. During periods of severe pain, bed rest may be helpful. Lay or sit in any position that is comfortable. Putting ice on the injured area. Put ice in a bag. Place a towel between your skin and the bag. Leave the ice on for 15 to 20 minutes, 3 to 4 times a day. Follow up with your caregiver for continued problems and no reason can be found for the pain. If the pain becomes worse or does not go away, it may be necessary to repeat tests or do additional t esting. Your caregiver may need to look further for a possible cause. SEEK IMMEDIATE MEDICAL CARE IF: You have pain that is getting worse and is not relieved by medications. You develop chest pain that is associated with shortness or breath, sweating, feeling sick to your stomach (nauseous), or throw up (vomit). Your pain becomes localized to the abdomen. You develop any new symptoms that seem different or that concern you. MAKE SURE YOU: Understand these instructions. Will watch your condition. Will get help right away if you are not doing well or get worse. This information is not intended to replace advice given to you by your health care provider. Make sure you discuss any questions you have with your health care provider. Document Released: 02/20/2006 Document Revised: 05/14/2012 Document Reviewed: 10/25/2013 [employer] Patient Information 2015 [employer]. No follow up information was provided. Extracted from: Title: Office Visit Note- L hand pain Author: Liz Kim PA-C Date : 06/23/15 Assessment/Plan Hypertension Unable to make adjustments to medications at this time due to being in research study. Advised to see them for med changes. Ordered: Office Visit Level 4 Est 83856 Left hand pain Pt does not want to do any steroids, as this causes significant weight gain. He was given a cock-up wrist brace today to helpmore with compression and stability vs the TRAVIS bandage. He is also to increase his Gabapentin to2 tabsat bedtime and may increase further to 2 tabs in AM if needed. He is advised also to only take Mobic and not Ibuprofen with this. May take Tylenol prn oziel n as well. Pt also encouraged to ice the hand as well. Let us know if not improving. Ordered: Office Visit Level 4 Est 28582 Wrist hand orthosis, wrist extension control cock-up, non molded, [id number] Addendum by Liz Kim PA-C on Also, paperwork was completed for pt and June 23, 2015 16:56:19 CDT faxed to number on form.
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
--- OUTSIDE RECORDS SUMMARY | 2017-07-23 13:34 | External Medical Summary ---
:1965 Author Organization [facility] Address [address] [place] [address] Phone [phone] Care Team Providers Name Role Phone Millie Parish Unavailable Unavailable PROBLEMS Unknown Problems ALLERGIES Substance Reaction Event Type Date Status N.K.D.A. Unknown Non Drug Allergy Nov, Unknown SOCIAL HISTORY No smoking Hx information available PLAN OF CARE Activity Details Follow Up 6 mo with fasting lab Reason:null VITAL SIGNS Height 67 in 2016-11-10 Weight 256 lbs 0 oz lbs 2016-11-10 BMI 40.09 kg/m2 2016-11-10 Heart Rate 85 /min 2016-11-10 Temperature 97.0 degrees Fahrenheit 2016-11-10 Blood pressure systolic 144 mm Hg 2016-11-10 Blood pressure diastolic 95 mm Hg 2016-11-10 MEDICATIONS Medication Instructions Dosage Frequency Start End Date Duration Status Date tramadol 50mg orally as needed 1 tab 7 Dec, Active every 6 hours every 12 2016 hours as needed Sertraline HCl Orally Once a day 1 tablet 24h Active 100 MG Lisinopril 20 Orally Once a day 1 tablet 24h 30 days Active MG RESULTS No Results PROCEDURES Procedure Date Ordered Related Diagnosis Body Site Office Visit, New Pt., Level 3 Nov 10, 2016 IMMUNIZATIONS No Known Immunizations
--- OUTSIDE RECORDS SUMMARY | 2017-07-23 13:34 | External Medical Summary | Referral Summary ---
:1965 [facility] Address [address] [place] [address] [place] [address] Care Team Providers Name Role Phone Brian Olivares Primary Care Physician Encounter VC Date(s): 02/20/15 - 02/20/15 [facility] [address] [place] [phone] Discharge Diagnosis: Acute gout Discharge Disposition: 01-Home or Self Care Attending Physician: Liz Kim PA-C Admitting Physician: Liz Kim PA-C Vital Signs Most recent to oldest [Reference Range]: 1 Blood Pressure [90-140/60-90 mmHg] 120/78 mmHg (02/20/15 3:13 PM) Problem List Condition Effective Dates Status [...] Daily, # 30 tabs, 0 Refill(s), Pharmacy: [facility] # [id number], 1 tabs Oral Daily Start Date: 02/11/15 Status: Orderedcitalopram 20 mg oral tablet mg tabs, Oral, Daily, PT REPORTS HE TAKE 20 MG WITH A 40 MG QD., 0 Refill(s) Start Date: 01/27/15 Status: Orderedcitalopram 40 mg oral tablet See Instructions, TAKE ONE TABLET BY MOUTH EVERY DAY, # 30 tabs, 1 Refill(s), eRx: [facility] #[id number], TAKE ONE TABLET BY MOUTH EVERY DAY Start Date: 04/07/14 Status: Orderedindomethacin 25 mg oral capsule See Instructions, TAKE ONE CAPSULE BY MOUTH THREE TIMES A DAY WITH FOOD, # 30 caps, eRx: [facility] #[id number], TAKE ONE CAPSULE BY MOUTH THREE TIMES A DAY WITH FOOD Start Date: 02/19/15 Status: Orderedlisinopril 20 mg oral tablet See Instructions, TAKE ONE TABLET BY MOUTH EVERY DAY, # 30 tabs, 5 Refill(s), eRx: [facility] #[id number], TAKE ONE TABLET BY MOUTH EVERY DAY Start Date: 10/20/14 Status: OrderedMobic 7.5 mg oral tablet 7.5 mg 1 tabs, Oral, BID, # 60 tabs, 0 Refill(s), Pharmacy: [facility] # [id number], 1 tabs Oral BID Start Date: 01/27/15 Status: OrderedNorco 7.5 mg-325 mg oral tablet 1 tabs, Oral, q4hr, as needed for pain, # 60 tabs, 0 Refill(s) Start Date: 02/16/15 Status: OrderedProAir RespiClick 90 mcg/inh inhalation powder 1 puffs, Inhalation, QID, as needed for wheezing., # 1 Each, 2 Refill(s), Pharmacy: [facility]#[id number] Start Date: 01/21/15 Status: OrderedStiolto Respimat Stiolto Respimat, 2 puffs, Inhalation, Daily, # 1 Each, 2 Refill(s), called to pharmacy (Rx) Start Date: 11/17/14 Status: OrderedZocor 40 mg oral tablet 1 tabs, Oral, Bedtime (once a day), # 30 tabs, 0 Refill(s) Start Date: 08/22/13 Status: Ordered Results Chemistry Most recent to oldest [Reference Range]: 1 Uric Acid [3.5-7.2 mg/dL] 6.8 mg/dL (02/20/15 3:42 PM) Immunizations Vaccine Date Refusal Reason tetanus/diphth/pertuss (Tdap) adult/adol 08/05/10 Procedures Procedure Date Related Diagnosis Body Site Collection of venous blood by venipuncture 02/20/15 Open reduction and internal fixation of fracture - right 5th metacarpal Social History Social History Type Response Smoking Status Never smoker Assessment and Plan Extracted from: Title: Ambulatory Patient Education Author: Liz Kim PA-C Date: 02/20/15 Family Medicine Gout Gout is an inflammatory arthritis caused by a buildup of uric acid crystals in the joints. Uric acid is a chemical that is normally present in the blood. When the level of uric acid in the blood is too high it can form crystals that deposit in your joints and tissues. This causes joint redness, soreness, and swelling (inflammation). Repeat attacks are common. Over time, uric acid crystals can form int o masses (tophi) near a joint, destroying bone and causing disfigurement. Gout is treatable and often preventable. CAUSES The disease begins with elevated levels of uric acid in the blood. Uric acid is produced by your body when it breaks down a naturally found substance called purines. Certain foods you eat, such as meats and fish, contain high amounts of purines. Causes of an elevated uric acid level include: Being passed down from parent to child (heredity). Diseases that cause increased uric acid production (such as obesity, psoriasis, and certain cancers). Excessive alcohol use. Diet, especially diets rich in meat and seafood. Medicines, including certain cancer-fighting medicines (chemotherapy), water pills (diuretics), and aspirin. Chronic kidney disease. The kidneys are no longer able to remove uric acid well. Problems with metabolism. Conditions strongly associated with gout include: Obesity. High blood pressure. High cholesterol. Diabetes. Not everyone with elevated uric acid levels gets gout. It is not understood why some people get gout and others do not. Surgery, joint injury, and eating too much of certain foods are some of the factors that can lead to gout attacks. SYMPTOMS An attack of gout comes on quickly. It causes intense pain with redness, swelling, and warmth in a joint. Fever can occur. Often, only one joint is involved. Certain joints are more commonly involved: Base of the big toe. Knee. Ankle. Wrist. Finger. Without treatment, an attack usually goes away in a few days to weeks. Between attacks, you usually will not have symptoms, which is different from many other forms of arthritis. DIAGNOSIS Your caregiver will suspect gout based on your symptoms and exam. In some cases , tests may be recommended. The tests may include: Blood tests. Urine tests. X-rays. Joint fluid exam. This exam requires a needle to remove fluid from the joint (arthrocentesis). Using a microscope, gout is confirmed when uric acid crystals are seen in the joint fluid. TREATMENT There are two phases to gout treatment: treating the sudden onset (acute) attack and preventing attacks (prophylaxis). Treatment of an Acute Attack. Medicines are used. These include anti-inflammatory medicines or steroid medicines. An injection of steroid medicine into the affected joint is sometimes necessary. The painful joint is rested. Movement can worsen the arthritis. You may use warm or cold treatments on painful joints, depending which works best for you. Treatment to Prevent Attacks. If you suffer from frequent gout attacks, your caregiver may advise preventive medicine. These medicines are started after the acute attack subsides. These medicines either help your kidneys elimin ate uric acid from your body or decrease your uric acid production. You may need to stay on these medicines for a very long time. The early phase of treatment with preventive medicine can be associated with an increase in acute gout attacks. For this reason, during the first few months of treatment, your caregiver may also ad vise you to take medicines usually used for acute gout treatment. Be sure you understand your caregiver's directions. Your caregiver may make several adjustments to your medicine dose before these medicines are effective. Discuss dietary treatment with your caregiver or dietitian. Alcohol and drinks high in sugar and fructose and foods such as meat, poultry, and seafood can increase uric acid levels. Your caregiver or dietitian can advise you on drinks and foods that should be limited. HOME CARE INSTRUCTIONS Do not take aspirin to relieve pain. This raises uric acid levels. Only take vmsq-iiu-nkayxii or prescription medicines for pain, discomfort , or fever as directed by your caregiver. Rest the joint as much as possible. When in bed, keep sheets and blankets off painful areas. Keep the affected joint raised (elevated). Apply warm or cold treatments to painful joints. Use of warm or cold treatments depends on which works best for you. Use crutches if the painful joint is in your leg. Drink enough fluids to keep your urine clear or pale yellow. This helps your body get rid of uric acid. Limit alcohol, sugary drinks, and fructose drinks. Follow your dietary instructions. Pay careful attention to the amount of protein you eat. Your daily diet should emphasize fruits, vegetables, whole grains, and fat-free or low-fat milk products. D iscuss the use of coffee, vitamin C, and cherries with your caregiver or dietitian. These may be helpful in lowering uric acid levels. Maintain a healthy body weight. SEEK MEDICAL CARE IF: You develop diarrhea, vomiting, or any side effects from medicines. You do not feel better in 24 hours, or you are getting worse. SEEK IMMEDIATE MEDICAL CARE IF: Your joint becomes suddenly more tender, and you have chills or a fever. MAKE SURE YOU: Understand these instructions. Will watch your condition. Will get help right away if you are not doing well or get worse. Document Released: 02/17/2001 Document Revised: 07/07/2014 Document Reviewed: 10/03/2012 [facility] Patient Information 2015 [employer]. This information is not intended to replace advice given to you by your health care provider. Make sure you discuss any questions you have with your health care provider. Low-Purine Diet Purines are compounds that affect the level of uric acid in your body. A low- purine diet is a diet that is low in purines. Eating a low-purine diet can prevent the level of uric acid in your body from g etting too high and causing gout or kidney stones or both. WHAT DO I NEED TO KNOW ABOUT THIS DIET? Choose low-purine foods. Examples of low-purine foods are listed in the next section. Drink plenty of fluids, especially water. Fluids can help remove uric acid from your body. Try to drink 816 cups (1.93.8 L) a day. Limit foods high in fat, especially saturated fat, as fat makes it harder for the body to get rid of uric acid. Foods high in saturated fat include pizza , cheese, ice cream, whole milk, fried foods , and gravies. Choose foods that are lower in fat and lean sources of protein. Use olive oil when cooking as it contains healthy fats that are not high in saturated fat. Limit alcohol. Alcohol interferes with the elimination of uric acid from your body. If you are having a gout attack, avoid all alcohol. Keep in mind that different people's bodies react differently to different foods. You will probably learn over time which foods do or do not affect you. If you discover that a food tends to cause y our gout to flare up, avoid eating that food. You can more freely enjoy foods that do not cause problems. If you have any questions about a food item, talk to your dietitian or health care provider. WHICH FOODS ARE LOW, MODERATE, AND HIGH IN PURINES? The following is a list of foods that are low, moderate, and high in purines. You can eat any amount of the foods that are low in purines. You may be able to have small amounts of foods that are moderat e in purines. Ask your health care provider how much of a food moderate in purines you can have. Avoid foods high in purines. Grains Foods low in purines: Enriched white bread, pasta, rice, cake, cornbread, popcorn. Foods moderate in purines: Whole-grain breads and cereals, wheat germ, bran, oatmeal. Uncooked oatmeal. Dry wheat bran or wheat germ. Foods high in purines: Pancakes, Green[place]ic toast, biscuits, muffins. Vegetables Foods low in purines: All vegetables, except those that are moderate in purines. Foods moderate in purines: Asparagus, cauliflower, spinach, mushrooms, green peas. Fruits All fruits are low in purines. Meats and other Protein Foods Foods low in purines: Eggs, nuts, peanut butter. Foods moderate in purines: 8090% lean beef, chapa, veal, pork, poultry, fish, eggs, peanut butter, nuts. Crab, lobster, oysters, and shrimp. Cooked dried beans, peas, and lentils. Foods high in purines: Anchovies, sardines, yeung, mussels, tuna, codfish, scallops, trout, and dayna. Siegel. Organ meats (such as liver or kidney). Tripe. Game meat. Goose. Sweetbreads. Dairy All dairy foods are low in purines. Low-fat and fat-free dairy products are best because they are low in saturated fat. Beverages Drinks low in purines: Water, carbonated beverages, tea, coffee, cocoa. Drinks moderate in purines: Soft drinks and other drinks sweetened with high-fructose corn syrup. Juices. To find whether a food or drink is sweetened with high-fructose corn syrup, look at the ingredients list. Drinks high in purines: Alcoholic beverages (such as beer). Condiments Foods low in purines: Salt, herbs, olives, pickles, relishes, vinegar. Foods moderate in purines: Butter, margarine, oils, mayonnaise. Fats and Oils Foods low in purines: All types, except gravies and sauces made with meat. Foods high in purines: Gravies and sauces made with meat. Other Foods Foods low in purines: Sugars, sweets, gelatin. Cake. Soups made without meat. Foods moderate in purines: Meat-based or fish-based soups, broths, or bouillons. Foods and drinks sweetened with high-fructose corn syrup. Foods high in purines: High-fat desserts (such as ice cream, cookies, cakes, pies, doughnuts, and chocolate). Contact your dietitian for more information on foods that are not listed here. Document Released: 06/17/2011 Document Revised: 02/25/2014 Document Reviewed: 01/27/2014 [facility] Patient Information 2015 [employer]. This information is not intended to replace advice given to you by your health care provider. Make sure you discuss any questions you have with your health care provider. No follow up information was provided. Extracted from: Title: Office Visit Note- Gout Author: Liz Kim PA-C Date: Assessment/Plan Acute gout, Acute gout Pt advised to continue with the indomethacin for now. Hold Mobic. Continue on Allopurinol, and needs to take daily to prevent attacks. I did print off a list of foods to avoid with gout, which is basi asuncion everything he has been eating. He is honest, and tells me that he is not going to change his diet. Will check Uric Acid level today. He is to RTC if not improving. Ordered: Office Visit Level 3 Est 59179 Uric Acid
--- OUTSIDE RECORDS SUMMARY | 2017-07-23 13:34 | External Medical Summary | Referral Summary ---
:1965 Author Organization [facility] Address [address] [place] [address] Care Team Providers Name Role Phone Brian Olivares Primary Care Physician Encounter VC Date(s): 11/04/14 - 11/04/14 [facility] [address] [place] [address] [place] Discharge Diagnosis: SHORTNESS OF BREATH Discharge Diagnosis: Reactive airway disease Discharge Disposition: 01-Home or Self Care Attending Physician: Rosalio Siddiqi MD Admitting Physician: Rosalio Siddiqi MD Referring Physician: Brian Olivares MD Vital Signs Most recent to oldest [Reference Range]: 1 Peripheral Pulse Rate [60-100 bpm] 104 bpm *HI* (11/04/14 2:24 PM) Respiratory Rate [14-20 br/min] 24 br/min *HI* (11/04/14 2:24 PM) Blood Pressure [90-140/60-90 mmHg] 132/64 mmHg (11/04/14 2:24 PM) SpO2 98 % (11/04/14 2:24 PM) Problem List Condition Effective Dates Status [...] Daily, # 30 tabs, 0 Refill(s), [facility] [id number], 1 tabs Oral Daily Start Date: 02/11/15 Status: Orderedcitalopram 20 mg oral tablet mg tabs, Oral, Daily, PT REPORTS HE TAKE 20 MG WITH A 40 MG QD., 0 Refill(s) Start Date: 01/27/15 Status: Orderedcitalopram 40 mg oral tablet See Instructions, TAKE ONE TABLET BY MOUTH EVERY DAY, # 30 tabs, 0 Refill(s), Pharmacy: [facility] #[id number], Pt needs appointment before additional refills will be sent., TAKE ONE TABLET BY MOUTH EVERY DAY Start Date: 04/14/15 Status: Orderedgabapentin 300 mg oral capsule See Instructions, Take 1 cap PO QD x 2 days, 1 cap PO BID x 2 days, then 1 caps Oral TID, # 90 caps,0 Refill(s), Pharmacy: [facility] #[id number], Take 1 cap PO QD x 2 days, 1 cap PO BID x 2 days, then 1 caps Oral TID Start Date: 05/01/15 Status: Orderedindomethacin 25 mg oral capsule See Instructions, TAKE ONE CAPSULE BY MOUTH THREE TIMES A DAY WITH FOOD, # 30 caps, eRx: [facility] #[id number], TAKE ONE CAPSULE BY MOUTH THREE TIMES A DAY WITH FOOD Start Date: 02/19/15 Status: Orderedlisinopril 20 mg oral tablet See Instructions, TAKE ONE TABLET BY MOUTH EVERY DAY, # 30 tabs, 0 Refill(s), Pharmacy: [facility] #[id number] Start Date: 04/14/15 Status: OrderedMobic 7.5 mg oral tablet 7.5 mg 1 tabs, Oral, BID, # 60 tabs, 0 Refill(s), Pharmacy: [facility] # [id number], 1 tabs Oral BID Start Date: 01/27/15 Status: OrderedpredniSONE 20 mg oral tablet See Instructions, 3 tabs x 3days; 2 tabs x3 days; 1 tab x3 days, # 18 tabs, 0 Refill(s), Pharmacy: [facility] #[id number], 3 tabs x 3days; 2 tabs x3 days; 1 tab x3 days Start Date: 05/01/15 Status: OrderedpredniSONE 20 mg oral tablet See Instructions, 3 tabs x 3days; 2 tabs x3 days; 1 tab x3 days, # 18 tabs, 0 Refill(s), Pharmacy: [facility] #[id number], 3 tabs x 3days; 2 tabs x3 [...] Extracted from: Title: Ambulatory Patient Education Author: Rosalio Siddiqi MD Date: Allergy Shortness of Breath Shortness of breath means you have trouble breathing. It could also mean that you have a medical problem. You should get immediate medical care for shortness of breath. CAUSES Not enough oxygen in the air such as with high altitudes or a smoke- filled room. Certain lung diseases, infections, or problems. Heart disease or conditions, such as angina or heart failure. Low red blood cells (anemia). Poor physical fitness, which can cause shortness of breath when you exercise. Chest or back injuries or stiffness. Being overweight. Smoking. Anxiety, which can make you feel like you are not getting enough air. DIAGNOSIS Serious medical problems can often be found during your physical exam. Tests may also be done to determine why you are having shortness of breath. Tests may include: Chest X-rays. Lung function tests. Blood tests. An electrocardiogram (ECG). An ambulatory electrocardiogram. An ambulatory ECG records your heartbeat patterns over a 24-hour period. Exercise testing. A transthoracic echocardiogram (TTE). During echocardiography, sound waves are used to evaluate how blood flows through your heart. A transesophageal echocardiogram (SHAHID). Imaging scans. Your health care provider may not be able to find a cause for your shortness of breath after your exam. In this case, it is important to have a follow-up exam with your health care provider as directed. TREATMENT Treatment for shortness of breath depends on the cause of your symptoms and can vary greatly. HOME CARE INSTRUCTIONS Do not smoke. Smoking is a common cause of shortness of breath. If you smoke, ask for help to quit. Avoid being around chemicals or things that may bother your breathing, such as paint fumes and dust. Rest as needed. Slowly resume your usual activities. If medicines were prescribed, take them as directed for the full length of time directed. This includes oxygen and any inhaled medicines. Keep all follow-up appointments as directed by your health care provider. SEEK MEDICAL CARE IF: Your condition does not improve in the time expected. You have a hard time doing your normal activities even with rest. You have any new symptoms. SEEK IMMEDIATE MEDICAL CARE IF: Your shortness of breath gets worse. You feel light-headed, faint, or develop a cough not controlled with medicines. You start coughing up blood. You have pain with breathing. You have chest pain or pain in your arms, shoulders, or abdomen. You have a fever. You are unable to walk up stairs or exercise the way you normally do. MAKE SURE YOU: Understand these instructions. Will watch your condition. Will get help right away if you are not doing well or get worse. Document Released: 11/15/2001 Document Revised: 02/25/2014 Document Reviewed: 05/07/2012 [facility] Patient Information 2015 [facility] [employer]. This information is not intended to replace advice given to you by your health care provider. Make sure you discuss any questions you have with your health care provider. No follow up information was provided. Extracted from: Title: Office Visit Note Author: Rosalio Siddiqi MD Date: 11/04/14 Assessment/Plan 1.SHORTNESS OF BREATH His shortness of breath is likely multifactorial. He is obese. He has evidence of obstruction with bronchodilator response. Given history of airway gutierrez, this is consistent with reactive airways disease. He has not had a significant response to advair which i suspect is due to coexsistent of tracheal stenosis Ordered: CT Thorax w/o Contrast 2.Tracheal stenosis His PFTs are notable for fixed airway obststruction. given history of intubation and tracheostomy this is consistent with tracheal stenosis.Coexistent tracheomalacia cannot b e excluded. Will obtain an inspiratory and expiratory film of thetrachea and mainstem bronchias well asregularCT of lung. Will plan for bronchoscopy after CT Ordered: CT Soft Tissue Neck w/o Contrast CT Thorax w/o Contrast 3.Reactive airway disease He has features consistent with reactive airways disease. He had a marked bronchodilators response. He however has not had benefit from the bronchodilators which i susp ect is because of coexistent fixed airway obstruction. I encouraged him to continue using bronchodilators. I gave a long acting bornchodilator Orders: brncdilat rspse spmtry pre+post-brncdilat admn [id number] Diffusing Turin [id number] Plethysmography [id number] I have reviewed laboratory results I have reviewed the patientsradiology and imaging results I have reviewed old records I have reviewed the literature I have discussed the plan of care with the patient
--- OUTSIDE RECORDS SUMMARY | 2017-07-23 13:34 | External Medical Summary | Referral Summary ---
:1965 Author Organization [facility] Address [address] [place] [address] Care Team Providers Name Role Phone Brian Olivares Primary Care Physician Encounter VC Date(s): 11/04/14 - 11/04/14 [facility] [address] [place] [address]- [place] Discharge Diagnosis: SOB (shortness of breath) Discharge Disposition: 01-Home or Self Care Attending Physician: Rosalio Siddiqi MD Admitting Physician: Rosalio Siddiqi MD Referring Physician: Brian Olivares MD Vital Signs No data available for this section Problem List Condition Effective Dates Status Health [...] Daily, # 30 tabs, 0 Refill(s), Pharmacy: [facility] # [id number], 1 tabs Oral Daily Start Date: 02/11/15 Status: Orderedcitalopram 20 mg oral tablet mg tabs, Oral, Daily, PT REPORTS HE TAKE 20 MG WITH A 40 MG QD., 0 Refill(s) Start Date: 01/27/15 Status: Orderedcitalopram 40 mg oral tablet See Instructions, TAKE ONE TABLET BY MOUTH EVERY DAY, # 30 tabs, 0 Refill(s), [id number], Pt needs appointment before additional refills will be sent., TAKE ONE TABLET BY MOUTH EVERY DAY Start Date: 04/14/15 Status: Orderedgabapentin 300 mg oral capsule See Instructions, Take 1 cap PO QD x 2 days, 1 cap PO BID x 2 days, then 1 caps Oral TID, # 90 caps,0 Refill(s), Pharmacy: [facility] #[id number], Take 1 cap PO QD x 2 days, 1 cap PO BID x 2 days, then 1 caps Oral TID Start Date: 05/01/15 Status: Orderedindomethacin 25 mg oral capsule See Instructions, TAKE ONE CAPSULE BY MOUTH THREE TIMES A DAY WITH FOOD, # 30 caps, eRx: [facility] #[id number], TAKE ONE CAPSULE BY MOUTH THREE TIMES A DAY WITH FOOD Start Date: 02/19/15 Status: Orderedlisinopril 20 mg oral tablet See Instructions, TAKE ONE TABLET BY MOUTH EVERY DAY, # 30 tabs, 0 Refill(s), Pharmacy: [facility] #[id number] Start Date: 04/14/15 Status: OrderedMobic 7.5 mg oral tablet 7.5 mg 1 tabs, Oral, BID, # 60 tabs, 0 Refill(s), Pharmacy: [facility] # [id number], 1 tabs Oral BID Start Date: 01/27/15 Status: OrderedpredniSONE 20 mg oral tablet See Instructions, 3 tabs x 3days; 2 tabs x3 days; 1 tab x3 days, # 18 tabs, 0 Refill(s), Pharmacy: [facility] #[id number], 3 tabs x 3days; 2 tabs x3 days; 1 tab x3 days Start Date: 05/01/15 Status: OrderedpredniSONE 20 mg oral tablet See Instructions, 3 tabs x 3days; 2 tabs x3 days; 1 tab x3 days, # 18 tabs, 0 Refill(s), Pharmacy: [facility] #[id number], 3 tabs x 3days; 2 tabs x3 [...]
--- OUTSIDE RECORDS SUMMARY | 2017-07-23 13:34 | External Medical Summary ---
:1965 Author Organization [facility] Address [address] [place] [address] Phone [phone] Care Team Providers Name Role Phone JemMillie [...]
--- OUTSIDE RECORDS SUMMARY | 2017-07-23 13:35 | External Medical Summary | Continuity of Care Document ---
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 Outpatie ULLOM Satr LAB 12:20:00 12:20:00 nt LYDIA Ledesma MD, [facility] [id number] 07/04/2016 07/04/2016 DIS Outpatie [place] [facility] antidepressa 2096 08:56:00 23:59:00 nt , [facility] nt med M [id number] 06/29/2016 06/29/2016 DIS Outpatie [place] [facility] RASH X3-4 7716 13:31:00 23:59:00 nt , [facility] DAYS M [id number] 03/02/2016 03/02/2016 DIS Outpatie [place] [facility] TCPA RASH ON 1008 09:25:00 23:59:00 nt , [facility] BACK X4 DAYS M [id number] 02/24/2016 02/24/2016 DIS Outpatie Olivares, [facility] med check 4511 10:03:00 23:59:00 nt Hina [facility] blood pressure [id number] 06/23/2015 06/23/2015 DIS Outpatie [place] [facility] LEFT HAND 1442 14:02:00 23:59:00 nt , [facility] PAIN M [id number] 05/11/2015 05/11/2015 DIS Outpatie Oyieng&#3 Via [facility] Mur RCK/DISCUSS 9903 13:57:00 23:59:00 nt 9;'o, Clinic Pulm OPTIONS Rosalio O [id number] 05/01/2015 05/01/2015 DIS Outpatie [place] [facility] FM right hand 6593 10:00:00 23:59:00 nt , [facility] foot M problems [id number] 03/04/2015 03/04/2015 DIS Outpatie Hugh[place] [facility] New FM still having 8428 09:19:00 23:59:00 nt , [facility] foot pain, M mostly at night [id number] 02/20/2015 02/20/2015 DIS Outpatie Hughbanks [facility] FM Gout 5472 15:03:00 23:59:00 nt , [facility] M [id number] 12/02/2014 12/02/2014 DIS Outpatie Olivares, [facility] FM Hand Swollen 9320 13:02:00 23:59:00 nt Hina F [facility] [id number] 11/04/2014 11/04/2014 DIS Outpatie Oyieng&#3 Via [facility] Mur PFT/OYIENGO/ 9344 13:34:00 23:59:00 nt 9;'o, Clinic Pulm 786.05 Rosalio O [id number] 11/04/2014 11/04/2014 DIS Outpatie Oyieng&#3 [facility] Mur NPT/R 9348 12:41:00 23:59:00 nt 9;'o, Clinic Pulm OLIVARES/SOA Rosalio O [id number] 09/08/2014 09/08/2014 DIS Outpatie Olivares, [facility] FM possible 7476 14:12:00 23:59:00 nt Hina F Clinic sinus infection [id number] 09/28/2016 Document [id number] 05:24:51 Registra tion [id number] 05/02/2013 05/02/2013 CLS Outpatie 08:06:00 23:59:59 nt [id number] 04/15/2013 04/15/2013 CLS Outpatie 11:15:00 23:59:59 nt [id number] 07/06/2017 Document 00:00:00 Registra tion [id number] 07/05/2017 Document 15:20:00 Registra tion [id number] 05/02/2013 05/02/2013 CLS Outpatie 08:06:00 23:59:59 nt [id number] 04/15/2013 04/15/2013 CLS Outpatie 11:15:00 23:59:59 nt [id number] 06/09/2017 06/09/2017 DIS Emergenc Garrido Via [facility] ED diff 0796 14:36:00 17:55:00 y , [facility] on breathing [place] [id number] 05/21/2015 05/21/2015 DIS Outpatie Oyieng&#3 Via [facility] SPS Cough/Shortn 2500 07:03:00 09:47:00 nt 9;'o, Hospital on ess of Rosalio O [place] Breathe [id number] 06/10/2017 Document [id number] 05:18:02 Registra tion [id number] 09/28/2016 Document [id number] 05:24:51 Registra tion 2016070507/05/2016 Document [id number] 05:16:16 Registra tion [id number] 06/30/2016 Document [id number] 05:16:02 Registra tion 2016030303/03/2016 Document [id number] 05:16:17 Registra tion 2016022502/25/2016 Document [id number] 05:16:43 Registra tion 2016010901/09/2016 Document [id number] 05:17:54 Registra tion [id number] 07/28/2015 Document [id number] 05:17:16 Registra tion [id number] 05/12/2015 Document [id number] 05:17:24 Registra tion [id number] 05/02/2015 Document [id number] 05:17:01 Registra tion [id number] 03/05/2015 Document [id number] 05:16:45 Registra tion [id number] 02/20/2015 Document [id number] 05:16:40 Registra tion 2014122412/24/2014 Document [id number] 14:27:49 Registra tion 2014122412/24/2014 Document [id number] 14:16:20 Registra tion 2014122412/24/2014 Document [id number] 14:06:56 Registra tion 2014122412/24/2014 Document [id number] 13:44:48 Registra tion 2014122412/24/2014 Document [id number] 13:29:03 Registra tion [id number] 12/24/2014 Document [id number] 13:06:15 Registra tion [id number] 12/24/2014 Document [id number] 12:37:49 Registra tion [id number] 12/24/2014 Document [id number] 12:30:07 Registra tion [id number] 12/24/2014 Document [id number] 11:10:39 Registra tion [id number] 12/24/2014 Document [id number] 10:32:59 Registra tion 2014122412/24/2014 Document [id number] 10:11:49 Registra tion [id number] 12/24/2014 Document [id number] 10:04:10 Registra tion [id number] 12/24/2014 Document [id number] 09:59:26 Registra tion [id number] 12/24/2014 Document [id number] 09:49:36 Registra tion [id number] 12/24/2014 Document [id number] 09:44:22 Registra tion [id number] 12/24/2014 Document [id number] 09:33:04 Registra tion [id number] 12/24/2014 Document [id number] 09:04:50 Registra tion [id number] 12/24/2014 Document [id number] 09:00:15 Registra tion [id number] 07/05/2017 07/05/2017 CLS Outpatie Richardso [facility] 10:15:00 23:59:59 nt n, [facility] [id number] 04/27/2017 Document 09:30:00 Registra tion [id number] 06/09/2017 06/09/2017 [facility] 14:36:00 17:55:00 y , [facility] on breathing [place] [id number] 05/21/2015 05/21/2015 DIS [facility] 2500 07:03:00 09:47:00 nt 9;'o, Hospital on ess of Rosalio O [place] Breathe [id number] 06/10/2017 Document [id number] 05:18:02 Registra tion [id number] 09/28/2016 Document [id number] 05:24:51 Registra tion [id number] 07/05/2016 Document [id number] 05:16:16 Registra tion [id number] 06/30/2016 Document [id number] 05:16:02 Registra tion [id number] 03/03/2016 Document [id number] 05:16:17 Registra tion 2016022502/25/2016 Document [id number] 05:16:43 Registra tion [id number] 01/09/2016 Document [id number] 05:17:54 Registra tion [id number] 07/28/2015 Document [id number] 05:17:16 Registra tion 2015051205/12/2015 Document [id number] 05:17:24 Registra tion [id number] 05/02/2015 Document [id number] 05:17:01 Registra tion [id number] 03/05/2015 Document [id number] 05:16:45 Registra tion [id number] 02/20/2015 Document [id number] 05:16:40 Registra tion 2014122412/24/2014 Document [id number] 14:27:49 Registra tion 2014122412/24/2014 Document [id number] 14:16:20 Registra tion [id number] 12/24/2014 Document [id number] 14:06:56 Registra tion 2014122412/24/2014 Document [id number] 13:44:48 Registra tion 2014122412/24/2014 Document [id number] 13:29:03 Registra tion [id number] 12/24/2014 Document [id number] 13:06:15 Registra tion 2014122412/24/2014 Document [id number] 12:37:49 Registra tion 2014122412/24/2014 Document [id number] 12:30:07 Registra tion 2014122412/24/2014 Document [id number] 11:10:39 Registra tion [id number] 12/24/2014 Document [id number] 10:32:59 Registra tion 2014122412/24/2014 Document [id number] 10:11:49 Registra tion 2014122412/24/2014 Document [id number] 10:04:10 Registra tion [id number] 12/24/2014 Document [id number] 09:59:26 Registra tion 2014122412/24/2014 Document [id number] 09:49:36 Registra tion 2014122421/2015 Document [id number] 09:44:22 Registra tion [id number] 12/24/2014 Document [id number] 09:33:04 Registra tion [id number] 12/24/2014 Document [id number] 09:04:50 Registra tion [id number] 12/24/2014 Document [id number] 09:00:15 Registra tion
[2017-07-23] MEDS ORDERED: HYDROMORPHONE 2 MG/ML INJECTION IVP ONE ×2 (13:49→15:58)
[2017-07-23] MEDS ORDERED: NS 1,000 ML IV ONE (13:49)
[2017-07-23] MEDS ORDERED: ONDANSETRON 4 MG/2 ML INJECTION IVP ONE (13:49)
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
[2017-07-23] MEDS: SALINE FLUSH 10ml SYRINGE IVF PRN (14:11)
[2017-07-23] MEDS ORDERED: SALINE FLUSH 10ml SYRINGE ONE (14:38)
[2017-07-23] MEDS ORDERED: IOHEXOL 300mg/ml 100ml INJECTION ONE (14:38)
[2017-07-23] MEDS ORDERED: CEFTRIAXONE (ER USE ONLY) 1 GM in NS 100 ML IV ONE (16:38)
[2017-07-23] MEDS: LEVOFLOXACIN PB 750 MG/150 ML BAG IV SCH (17:54)
[2017-07-23 17:56] VITALS: BMI 35.9
[2017-07-23] MEDS ORDERED: ACETAMINOPHEN 325 MG TABLET PO PRN (19:32)
--- NOTE | 2017-07-23 20:02 | Progress Note ---
- Date 07/23/17 Subjective: Pt comes in right scrotal pain and swelling of 3 days with f/c. Denies any n/v, cp or sob. Reports pain came on gradually and got bad enough where he came into the ED. Denies any previous such episodes, denies any trauma. Pt is not currently sexually active. Objective Vital signs: Temperature 98.7 F 07/23/17 18:04 Pulse Rate 89 07/23/17 18:04 Respiratory Rate 12 07/23/17 18:04 Blood Pressure 136/81 07/23/17 18:04 Pulse Oximetry 97 07/23/17 18:04 Height/Weight/BMI: Height 5 ft 9 in Weight 110.5 kg Body Mass Index 35.9 Results - Labs CBC & Chem 7: 07/23/17 13:57 07/23/17 13:56 Assessment and Plan - Physician Narrative Narrative: Date: 07/23/17 Time: 1951 Hospital Course Summary Disclaimer: The visit summary below is not to be considered part of the above Progress Note.
--- NOTE | 2017-07-23 20:11 | History & Physical Report ---
History of Present Illness Date: 07/23/17 HPI: Pt comes in right scrotal pain and swelling of 3 days with f/c. Denies any n/v, cp or sob. Reports pain came on gradually and got bad enough where he came into the ED. Denies any previous such episodes, denies any trauma. Pt is not currently sexually active. Review of Systems Review of systems: 10 point ros negative other than what is noted in HPI Past Medical History Surgical History: Denies any PSH Family History: No Significant Family History - Social History Smoking status: Never smoker Medications Home Medications Medication Instructions Recorded Confirmed Type Acetaminophen 650 mg PO Q4H PRN 07/23/17 07/23/17 History BuPROPion XL [Wellbutrin Xl] 150 mg PO DAILY 07/23/17 07/23/17 History Fluoxetine HCl [Prozac] 40 mg PO DAILY 07/23/17 07/23/17 History Ibuprofen 400 mg PO Q4H PRN 07/23/17 07/23/17 History Lisinopril [Prinivil] 40 mg PO DAILY 07/23/17 07/23/17 History Allergies Allergy/AdvReac Type Severity Reaction Status Date / Time No Known Allergies Allergy Verified 07/23/17 13:45 Exam Vital Signs: Temperature 98.7 F 07/23/17 18:04 Pulse Rate 89 07/23/17 18:04 Respiratory Rate 12 07/23/17 18:04 Blood Pressure 136/81 07/23/17 18:04 Pulse Oximetry 97 07/23/17 18:04 Height/Weight/BMI: Height 5 ft 9 in Weight 110.5 kg Body Mass Index 35.9 - Constitutional Present: no acute distress - Routine HEENT Exam Head: Present: normocephalic, atraumatic Eye: Present: EOMI ENT: Present: mucous membranes moist - Routine Cardiovascular Exam Present: RRR, no murmur - Routine Abdominal Exam Present: soft, non distended, non tender - Routine Exam Testicular: Left swelling, Left tenderness - Routine Extremities Exam Present: no edema. Absent: cyanosis, clubbing - Routine Skin Exam Present: intact, dry. Absent: erythema - Routine Neurological Exam Present: alert, oriented X3 - Routine Psychiatric Exam Present: normal affect Results - Labs CBC & Chem 7: 07/23/17 13:57 07/23/17 13:56 Assessment and Plan Assessment and Plan: Left scrotal Orchitis -Ruled out torsion per ED report of Sono -Will do rocephin + levaquin for now until cx's result Depression -Cont. home wellbutyrin -Cont. home fluoxetine HTN -Cont. home lisinopril Ppx -Lovenox - Physician Narrative Narrative: Date: 07/23/17 Time: 2003 Hospital Course Summary Disclaimer: The visit summary below is not to be considered part of the above Progress Note.
--- NOTE | 2017-07-24 07:53 | CT Scan Report ---
Indication: Hernia L Groin PROCEDURE: CT abdomen pelvis w con: Encounter: Initial Comparison: None Technique: Axial CT images were performed through the abdomen and pelvis after the administration of intravenous contrast. Coronal and sagittal two-dimensional reformats. Automated Exposure Control and Iterative Reconstruction dose reducing techniques were utilized. Contrast: Omnipaque 300 100 mL Findings: The lung bases are clear. The liver is unremarkable. The gallbladder, spleen, pancreas and right adrenal gland are normal. 2 cm left adrenal nodule possibly representing an adenoma, but indeterminate on this study. Small right renal cyst. Or pole left renal stone. No abdominal or pelvic lymphadenopathy. There is inflammation along the left spermatic cord and gonadal vein. Small fat-containing left inguinal hernia. Bladder, prostate and rectum are normal. No free fluid. No evidence of a bowel obstruction. Bone windows show no acute findings. Left-sided IVC noted incidentally. Impression: 1. Small fat-containing left inguinal hernia with Inflammation of the herniated fat in the inguinal canal extending into retroperitoneal area. 2. Left-sided IVC There is a preliminary report by [employer]. .
--- NOTE | 2017-07-24 07:57 | Ultrasound Report ---
Indication: left testicle pain PROCEDURE: US scrotum: Encounter: Initial Comparison: None FINDINGS: Both testicles are present in expected location. The testicles demonstrate a homogenous echotexture without intratesticular mass. The right testicle measures 4.2 x 2.3 x 2.7 cm, and the left testicle measures 4.2 x 2.4 x 3.2 cm. Color Doppler imaging demonstrates symmetric, arterial flow in the right testicle. Normal pulsed Doppler arterial and venous waveforms were obtained from each testicle. Right-sided epididymal head cyst measuring 6 mm in size. Left epididymal head enlargement and hyperemia. Significant hyperemia of the left testicle. Trace right hydrocele. Small to moderate left septated hydrocele. IMPRESSION: Left epididymoorchitis. There is a preliminary report by [facility]. .m.
[2017-07-24] MEDS: BuPROPion XL 150mg (24HR) TABLET PO SCH (08:24)
[2017-07-24] MEDS: ENOXAPARIN 40 MG/0.4 ML INJECTION SQ SCH (08:24)
[2017-07-24] MEDS: FLUoxetine 20 MG CAPSULE PO SCH (08:25)
[2017-07-24] MEDS: LISINOPRIL 40 MG TABLET PO SCH (08:25)
[2017-07-24] MEDS ORDERED: CEFTRIAXONE 1 GM in NS 100 ML IV SCH (09:00)
[2017-07-24] MEDS: Oxycodone/Acetaminophen 5/325 1 TAB PO PRN (13:58)
--- NOTE | 2017-07-24 14:10 | Progress Note ---
- Date 07/24/17 Subjective: Pt reports swelling and scrotal pain has not really improved, denies any n/v/d, f/c. Objective Vital signs: Temperature 98.8 F 07/24/17 11:40 Pulse Rate 84 07/24/17 11:40 Respiratory Rate 16 07/24/17 13:58 Blood Pressure 149/88 H 07/24/17 11:40 Pulse Oximetry 99 07/24/17 11:40 Height/Weight/BMI: Height 5 ft 9 in Weight 112 kg Body Mass Index 35.9 - Constitutional Present: no acute distress - Routine HEENT Exam Head: Present: normocephalic, atraumatic - Routine Respiratory Exam Present: CTA bilaterally. Absent: respiratory distress - Routine Cardiovascular Exam Present: RRR, no murmur - Routine Abdominal Exam Present: soft, non distended, non tender - Routine Exam Testicular: Left tenderness, Bilateral swelling - Routine Skin Exam Present: intact, dry. Absent: cyanosis, erythema - Routine Neurological Exam Present: alert, oriented X3 - Routine Psychiatric Exam Present: normal affect Results - Labs CBC & Chem 7: 07/24/17 04:40 07/23/17 13:56 Assessment and Plan Assessment and Plan: Left scrotal epididymoorchitis -Ruled out torsion per ED report of Sono -Pt got rocephin in ED, will do levaquin for now until cx's result Depression -Cont. home wellbutyrin -Cont. home fluoxetine HTN -Cont. home lisinopril Small inguinal Hernia -Present on CT but evaluated in ED and noted there was no clinical significant hernia to do anything about Ppx -Lovenox - Physician Narrative Narrative: Date: 07/24/17 Time: 1406 Hospital Course Summary Disclaimer: The visit summary below is not to be considered part of the above Progress Note. Hospital Course: 07/24/17 Not much improvement today but only 1 day of abx, will cont. to monitor. If infection not improving in next 1-2 days than abx choice may need to be changed or re-evluation of dx.
[2017-07-24] MEDS: LEVOFLOXACIN PB 750 MG/150 ML BAG IV SCH (16:57)
[2017-07-24] MEDS: ACETAMINOPHEN 325 MG TABLET PO PRN (20:41)
[2017-07-25] MEDS: Oxycodone/Acetaminophen 5/325 1 TAB PO PRN ×2 (04:42→10:54)
[2017-07-25] MEDS: LISINOPRIL 40 MG TABLET PO SCH (09:22)
[2017-07-25] MEDS: ENOXAPARIN 40 MG/0.4 ML INJECTION SQ SCH (09:22)
[2017-07-25] MEDS: BuPROPion XL 150mg (24HR) TABLET PO SCH (09:22)
[2017-07-25] MEDS: FLUoxetine 20 MG CAPSULE PO SCH (09:22)
[2017-07-25] MEDS: ACETAMINOPHEN 325 MG TABLET PO PRN (12:09)
[2017-07-25] MEDS: HYDROCODONE/APAP 7.5 MG/325 MG TABLET PO PRN ×3 (13:43→21:36)
--- NOTE | 2017-07-25 15:50 | Progress Note ---
- Date 07/25/17 Subjective: The patient was seen this afternoon in his room accompanied by his . He states that his scrotal pain is a little bit better today. He states it started approximately one week ago on July 19. He stated that he originally had swelling in the left testicle and then it spread to the right testicle as well a couple of days ago. He noticed some sweats and chills yesterday but none today. He has not had any fever here in the hospital. He did have a diarrheal stool 1 today. He has no history of C. difficile. He has some mild, intermittent, sharp right lower quadrant pain in the suprapubic area on occasion. It is not there currently. He states he is able to be a little bit more active today. He denies any chest pain, palpitations, shortness of breath or lightheadedness. He is urinating without difficulties. He does complain of a cough from phlegm in his throat which is chronic. He states he takes Benadryl at home. He is willing to try Claritin here. Objective Vital signs: Temperature 97.5 F 07/25/17 15:01 Pulse Rate 73 07/25/17 15:01 Respiratory Rate 18 07/25/17 15:01 Blood Pressure 147/89 H 07/25/17 15:01 Pulse Oximetry 98 07/25/17 15:01 Height/Weight/BMI: Weight 110.5 kg Comments: Afebrile, heart rate 73, respirations 18, blood pressure 147/89, O2 sat 98% on room air GEN-alert, oriented, no acute distress CV-regular rate and rhythm CHEST-clear to auscultation bilaterally ABD-soft, nontender, nondistended with positive bowel sounds -no Walls, no penile erythema or edema, patient has bilateral mild to moderate swelling and erythema of the scrotum with associated tenderness EXT-no edema NEURO-no focal deficits SKIN-warm and dry, no rashes or erythema other than of the scrotum Results - Labs CBC & Chem 7: 07/25/17 04:26 07/25/17 04:27 Labs: C-reactive protein today is 177 down from 377 yesterday White count is 10.3 down from 16 yesterday Microbiology Results: Urine culture negative after 2 days. Blood cultures 2 negative after 1 day Testing for chlamydia and gonorrhea are negative Assessment and Plan Assessment and Plan: Left scrotal epididymoorchitis -Ruled out torsion per ED report of Sono -Pt got rocephin in ED, will do levaquin for now until cx's result -Recommended treatment is Levaquin for 10-14 days in males above 35 -Possible discharge tomorrow if he continues to do well. -Check CBC with manual differential tomorrow. Check manual differential on CBC from today Mild intermittent pain in the right suprapubic area/right lower quadrant -no tenderness, rebound or guarding. Will monitor at this time Depression -Cont. home wellbutyrin -Cont. home fluoxetine HTN -Cont. home lisinopril Small inguinal Hernia -Present on CT but evaluated in ED and noted there was no clinical significant hernia to do anything about Mild diarrhea -Add Lactobacillus tablets Chronic cough from phlegm/history of tracheal irritation from ET tube in remote past -The patient uses Benadryl at home, but will start Claritin here Ppx -Lovenox Currently, the patient does not have a primary care provider. He is to see Dr. Olivares. He thinks he would want to establish with a physician at [facility], possibly Dr. Hanley. - Physician Narrative Narrative: Date: 07/25/17 Time: 1542 Hospital Course Summary Disclaimer: The visit summary below is not to be considered part of the above Progress Note. Hospital Course: 07/24/17 Not much improvement today but only 1 day of abx, will cont. to monitor. If infection not improving in next 1-2 days than abx choice may need to be changed or re-evluation of dx.
[2017-07-25] MEDS: LACTOBACILLUS (15B cfu) CAPSULE PO SCH (17:33)
[2017-07-25] MEDS: LORATADINE 10 MG TABLET PO SCH (17:34)
[2017-07-25] MEDS: LEVOFLOXACIN PB 750 MG/150 ML BAG IV SCH (17:34)
[2017-07-26] MEDS: HYDROCODONE/APAP 7.5 MG/325 MG TABLET PO PRN ×5 (01:48→21:29)
[2017-07-26] MEDS: LORATADINE 10 MG TABLET PO SCH (06:24)
[2017-07-26] MEDS: LISINOPRIL 40 MG TABLET PO SCH (09:00)
[2017-07-26] MEDS: ENOXAPARIN 40 MG/0.4 ML INJECTION SQ SCH (09:00)
[2017-07-26] MEDS: BuPROPion XL 150mg (24HR) TABLET PO SCH (09:00)
[2017-07-26] MEDS: FLUoxetine 20 MG CAPSULE PO SCH (09:00)
[2017-07-26] MEDS: LACTOBACILLUS (15B cfu) CAPSULE PO SCH ×3 (09:00→17:11)
--- NOTE | 2017-07-26 09:46 | Progress Note ---
- Date 07/26/17 Subjective: F/U: left epididymoorchitis, left inguinal hernia. Joseph is seen this morning while resting in bed having just finished breakfast. He reports that he is feeling about the same as yesterday with no significant improvement. He continues to complains of severe scrotal pain as well as sharp pain in his right lower quadrant and right scrotum with persistent swelling and scrotal erythema. His right lower quadrant pain waxes and wanes and radiates along the right inguinal canal into the scrotum. He denies any chest pain, shortness of breath, abdominal pain, nausea, vomiting or dysuria. No fever or chills. He does admit to prior hematuria but has not noticed any today. Appetite is stable and bowels are moving. Objective Vital signs: Temperature 96.2 F L 07/26/17 07:33 Pulse Rate 67 07/26/17 07:33 Respiratory Rate 18 07/26/17 07:33 Blood Pressure 139/84 07/26/17 07:33 Pulse Oximetry 99 07/26/17 07:33 Height/Weight/BMI: Weight 246 lb 14.684 oz Comments: Resting in bed; appears uncomfortable with movement. - Constitutional Present: no acute distress, well nourished, well developed, cooperative Comments: Afebrile. - Routine HEENT Exam Head: Present: normocephalic, atraumatic Eye: Present: PERRL. Absent: conjunctival icterus ENT: Present: mucous membranes moist, oropharynx clear - Routine Respiratory Exam Present: CTA bilaterally. Absent: respiratory distress, wheezes - Routine Cardiovascular Exam Present: RRR, S1, S2 - Routine Abdominal Exam Present: soft, normoactive bowel sounds, tenderness Comments: Tenderness along right inguinal canal, worse with palpation. - Routine Exam Scrotal: Present: swelling, tenderness, erythema Comments: Increased tenderness to right inguinal canal, scrotum and testicle. Moderate erythema with induration to scrotum, R>L with persistent swelling. Increased pain with scrotal elevation. - Routine Extremities Exam Present: no edema, full ROM, pulses intact - Routine Back/Spine/Pelvis Exam Back/Spine: Present: full ROM. Absent: vertebral tenderness - Routine Musculoskeletal Exam Musculoskeletal: Present: no clubbing or cyanosis, moving extremities well - Routine Skin Exam Present: dry, warm Comments: Afebrile. - Routine Neurological Exam Present: alert, oriented X3, moving all extremities, hearing grossly intact, normal speech - Routine Lymphatic Exam Lymphatic: Absent: lymphedema - Routine Psychiatric Exam Present: cooperative Results - Labs CBC & Chem 7: 07/27/17 04:31 07/27/17 04:31 Assessment and Plan Assessment and Plan: Assessment/Plan - 07/26/17 Left scrotal epididymoorchitis -Continue Levaquin IV daily for antimicrobial coverage of suspected pathogens - Day #3. -Recommend treatment with Levaquin for 10-14 total. Will plan to change to oral Levaquin prior to discharge. -Increased pain to right scrotum and RLQ along inguinal canal as well as scrotal erythema and induration. No wounds. Persistent pain. Consider repeating sono and/or CT for further evaluation. -May consider changing/broadening antimicrobial coverage for better strep/staph coverage. Will discuss with Dr. Farah. -Leukocytosis resolved 07/25 and remains stable. CRP trending down. -Recheck labs in AM to monitor blood counts, electrolytes and renal function. -Blood cultures and UA culture remain negative x 2 days. Mild intermittent pain in the right suprapubic area/right lower quadrant -Increased tenderness with palpation and movement to RLQ along inguinal canal, intermittent pain while at rest. Will discuss with Dr. Farah. Consider reimaging. Depression -Stable. Continue care. -Cont. home wellbutyrin -Cont. home fluoxetine HTN -Stable. Continue care. -Cont. home lisinopril Small inguinal hernia, left -Present on CT but evaluated in ED and noted there was no clinical significant hernia to do anything about Mild diarrhea -Resolved. -Continue Lactobacillus tablets Chronic cough from phlegm/history of tracheal irritation from ET tube in remote past -Improved. -Claritin initiated 07/25/17. Will continue Ppx -Lovenox DVT Prophylaxis: SCD's, Lovenox Resuscitation Status: Full Code - Time spent with patient Time with patient PN: 30 minutes - Physician Narrative Physician: Livia Farah MD Narrative: Date: 07/26/17 Time: 3:40 PM-I examined the patient independently. I reviewed this chart, the patient history, and the [employer]'s/PA's documented findings as above. We discussed and formulated the assessment and plan as above with the additions below.-Dr. Farah The patient was seen this afternoon in his room. He states he continues to have scrotal pain with movement. He has not noticed much improvement. He is not having any fevers. He occasionally feels a sharp pain in the right groin/right lower quadrant which only lasts several seconds and then goes away. He is otherwise having no abdominal pain. His bowels are moving okay. He is urinating without difficulties. He denies any chest pain. On exam he is alert and oriented 3. Chest is clear to auscultation. Cardiac vascular reveals a regular rate and rhythm. Abdomen is soft and nontender with positive bowel sounds. He does have some mild tenderness in the right groin and pubis area. Penis reveals no erythema or edema. He does have bilateral scrotal induration, erythema and tenderness. This appears unchanged from yesterday. Extremities are free of edema. Skin is warm and dry and without rashes. Impression and plan Epididymoorchitis-continue Levaquin, currently day 4. White count is improving. He is slow to show improvement in pain or induration. Blood and urine cultures remain negative after 2 days. Hypertension is well controlled Impression doing well on Wellbutrin and and Prozac. Consider discussing with urology. Repeat CBC, basic metabolic, C reactive protein tomorrow. Hospital Course Summary Disclaimer: The visit summary below is not to be considered part of the above Progress Note. Hospital Course: 07/24/17 Not much improvement today but only 1 day of abx, will cont. to monitor. If infection not improving in next 1-2 days than abx choice may need to be changed or re-evluation of dx. 07/26: Overall, not much improvement. Increased pain to right inguinal canal and right scrotum/testicle with scrotal erythema and induration. Continue levaquin (day #3). Consider broadening antibiotics and/or reimaging.
[2017-07-26] MEDS: SALINE FLUSH 10ml SYRINGE IVF PRN (17:11)
[2017-07-26] MEDS: LEVOFLOXACIN PB 750 MG/150 ML BAG IV SCH (17:11)
[2017-07-26 23:43] VITALS: O2SAT 99
[2017-07-27] MEDS: HYDROCODONE/APAP 7.5 MG/325 MG TABLET PO PRN ×2 (01:47→09:05)
[2017-07-27] MEDS: LORATADINE 10 MG TABLET PO SCH (06:13)
[2017-07-27 08:13] VITALS: BP 124/75; PULSE 73; RESP 18; TEMP 96.7
--- NOTE | 2017-07-27 08:35 | Discharge Summary ---
Discharge Information Date of admission: 07/24/17 15:18 Anticipated date of discharge: 07/27/17 Attending Physician: Livia Farah MD Consults: Dr. Antoine Fox [facility] (phone consultation-he plans to see as outpt) Discharge diagnoses: Epididymoorchitis, left. Leukocytosis - resolved. Anemia - resolved. Hypertension, chronic. Depression, chronic. Small left inguinal hernia, stable. - Laboratory Labs: 07/27/17 04:31 07/27/17 04:31 Laboratory Tests 07/23/17 07/23/17 07/23/17 13:56 13:57 16:28 WBC 16.9 H Hgb 13.4 L Neutrophils % (Manual) 88.0 H Band Neutrophils % 2.0 C-Reactive Protein Plasma Lactate 1.0 0.7 07/23/17 07/23/17 07/24/17 18:17 20:52 04:40 WBC Hgb Neutrophils % (Manual) Band Neutrophils % C-Reactive Protein 377.7 H Plasma Lactate 0.6 1.0 07/25/17 07/27/17 04:27 04:31 WBC Hgb Neutrophils % (Manual) Band Neutrophils % C-Reactive Protein 177.6 H 59.2 H Plasma Lactate - Microbiology Microbiology - results as of time of discharge 07/23/17 16:47 Peripheral/Iv Start Blood Culture - Preliminary No Growth After 3 Days 07/23/17 16:28 Peripheral/Iv Start Blood Culture - Preliminary No Growth After 3 Days 07/23/17 14:16 Urine, Voided (Cc/notcc) Urine Culture - Final No Growth After 2 Days - Radiology Radiology: Date of Exam: 07/23/17 Type of Exam(s): CT abdomen pelvis w con Reason for Exam(s): Hernia L Groin Findings: The lung bases are clear. The liver is unremarkable. The gallbladder, spleen, pancreas and right adrenal gland are normal. 2 cm left adrenal nodule possibly representing an adenoma, but indeterminate on this study. Small right renal cyst. Or pole left renal stone. No abdominal or pelvic lymphadenopathy. There is inflammation along the left spermatic cord and gonadal vein. Small fat-containing left inguinal hernia. Bladder, prostate and rectum are normal. No free fluid. No evidence of a bowel obstruction. Bone windows show no acute findings. Left-sided IVC noted incidentally. Impression: 1. Small fat-containing left inguinal hernia with Inflammation of the herniated fat in the inguinal canal extending into retroperitoneal area. 2. Left-sided IVC Date of Exam: 07/23/17 Type of Exam(s): US scrotum Reason for Exam(s): L Testicle Pain FINDINGS: Both testicles are present in expected location. The testicles demonstrate a homogenous echotexture without intratesticular mass. The right testicle measures 4.2 x 2.3 x 2.7 cm, and the left testicle measures 4.2 x 2.4 x 3.2 cm. Color Doppler imaging demonstrates symmetric, arterial flow in the right testicle. Normal pulsed Doppler arterial and venous waveforms were obtained from each testicle. Right-sided epididymal head cyst measuring 6 mm in size. Left epididymal head enlargement and hyperemia. Significant hyperemia of the left testicle. Trace right hydrocele. Small to moderate left septated hydrocele. IMPRESSION: Left epididymoorchitis. History of Present Illness HPI: Joseph Partida is a pleasant 52-year-old male who presented to [facility] emergency room on 07/23/17 for evaluation of groin pain and possible hernia. He reported increased pain to his groin beginning on 07/21/17 after picking up multiple large objects at work. Imaging in the ED revealed left epididymoorchitis as well as a small fat-containing left inguinal hernia with inflammation of the herniated fat in the inguinal canal extending into the retroperitoneal area and left IVC. Labs revealed leukocytosis (WBC 16.9 with 2% bands), mild anemia ( Hgb 13.4), mild non-fasting hyperglycemia (Glu 116) and otherwise unremarkable. UA revealed 20-30 RBC, 50-200 WBC and 4+ bacteria. He was started on Levaquin 750mg IV for antimicrobial coverage and was admitted to the hospitalist service for continued treatment. Regarding small inguinal hernia present on CT - evaluated in ED and noted there was no clinical significant hernia to do anything about Objective Vital signs: Temperature 96.7 F L 07/27/17 08:00 Pulse Rate 73 07/27/17 08:00 Respiratory Rate 18 07/27/17 08:00 Blood Pressure 124/75 07/27/17 08:00 Pulse Oximetry 99 07/27/17 08:00 Height/Weight/BMI: Weight 246 lb 14.684 oz Comments: Sitting on the edge of the bed in his room, eager for discharge home. - Constitutional Present: no acute distress, well nourished, well developed, obese, cooperative - Routine HEENT Exam Head: Present: normocephalic, atraumatic Eye: Present: PERRL. Absent: conjunctival icterus ENT: Present: mucous membranes moist, oropharynx clear - Routine Respiratory Exam Present: CTA bilaterally. Absent: respiratory distress, wheezes - Routine Cardiovascular Exam Present: RRR, S1, S2 - Routine Abdominal Exam Present: soft, normoactive bowel sounds, non tender. Absent: rebound, guarding - Routine Exam Testicular: Bilateral epididymal tenderness Scrotal: Present: swelling, erythema Groin: Present: inguinal hernia (left) Comments: Scrotal swelling and erythema improved as compared to yesterday, 07/26/17. Pain improved as well. - Routine Extremities Exam Present: no edema, full ROM, pulses intact - Routine Back/Spine/Pelvis Exam Back/Spine: Present: full ROM. Absent: vertebral tenderness - Routine Musculoskeletal Exam Musculoskeletal: Present: moving extremities well - Routine Skin Exam Present: intact, dry, warm Comments: Afebrile. - Routine Neurological Exam Present: alert, oriented X3, moving all extremities, hearing grossly intact, normal speech - Routine Lymphatic Exam Lymphatic: Absent: lymphedema - Routine Psychiatric Exam Present: normal affect, cooperative Hospital Course This is a general summary of the patient's hospital course. For more details refer to the complete medical record. Hospital course: Joseph Partida is a pleasant 52-year-old male who presented to [facility] emergency room on 07/23/17 for evaluation of groin pain and possible hernia. He reported increased pain to his groin beginning on 07/21/17 after picking up multiple large objects at work. Imaging in the ED revealed left epididymoorchitis as well as a small fat-containing left inguinal hernia with inflammation of the herniated fat in the inguinal canal extending into the retroperitoneal area and left IVC. Labs revealed leukocytosis (WBC 16.9 with 2% bands), mild anemia ( Hgb 13.4), mild non-fasting hyperglycemia (Glu 116) and otherwise unremarkable. UA revealed 20-30 RBC, 50-200 WBC and 4+ bacteria. Throughout his admission, he remained afebrile and non-toxic without signs of sepsis. He was started on Levaquin 750mg IV for antimicrobial coverage and was admitted to the hospitalist service for continued treatment. During his hospitalization, his pain was controlled with Tylenol. His leukocytosis resolved as did his anemia at time of discharge. Initial CRP was elevated at 377.7 which trended down with most recent CRP at 59.2. Scrotal erythema and swelling as well as pain gradually improved. Dr. Flores, urology, was consulted and recommended follow up in clinic on 08/02/17 as well as continuation of Levaquin orally for an additional 5 days following discharge. NSAIDs were encouraged for additional pain control. Mr. Partida plans to discharge home today, 07/27/17 and encouraged to rest and elevate scrotum as able. Time spent with patient: greater than 35 minutes Resuscitation Status: Full Code Discharge Plan - Discharge Disposition Discharge Date: 07/27/17 Disposition: 01 Discharged Home, Self-Care *Condition: Improved Reason For Visit (Visit label in EMR): Epidimitis Orchitis UTI Sepsis - Discharge Medications Medication Comments: Initiation of Levaquin 750mg on 07/23/17 - to be continued through 08/01/17. *Discharge Medications: New Acidoph/L.bulg/Bif.b/S.thermop [Bacid Caplet] 2 cap PO TIDWM #10 tab levoFLOXacin [Levaquin] 750 mg PO ACB #5 tab Loratadine [Claritin] 10 mg PO ACB #30 tab Hydrocodone/APAP 7.5/325 [Roscoe 7.5/325] 1 tab PO Q4H PRN #15 tab PRN Reason: Pain Continue Ibuprofen 400 mg PO Q4H PRN PRN Reason: Pain BuPROPion XL [Wellbutrin Xl] 150 mg PO DAILY Lisinopril [Prinivil] 40 mg PO DAILY Acetaminophen 650 mg PO Q4H PRN PRN Reason: Pain Fluoxetine HCl [Prozac] 40 mg PO DAILY - Discharge Packet/Instructions *Diet: Low salt, low fat *Activity: as tolerated *Pain Management/Treatment: Roscoe 5/325 every 4-6 hours as needed for pain. Ibuprofen 400mg every 6-8 hours as needed for pain. Rest and elevate scrotum. *Wound Care: None Additional Instructions: You have been started on the antibiotic Levaquin, 750mg daily, to treat your epididymitis. Take as directed until complete beginning on 07/28/17. Follow up with Dr. Flores, urology, at his [facility] on 08/02/17 at 4:10. Please arrive at the clinic at 3:50 with your insurance card and idenitification to complete registration. Rest and elevate scrotum as able. You are encouraged to wear tiddy-whities or tight boxer briefs to help elevate the scrotum. Continue your home medications as directed. You need to establish care with primary doctor. Please refer to the recommended doctors per your insurance or you may call [facility] at [phone]. *Expected Signs/Symptoms: gradual improvement of pain with resolution of swelling and redness. *Notify Physician if: fever >101, increased redness, increased swelling, wounds or discharge, pain with urination, increased pain, additional questions or concerns. *During Business Hours Contact: Dr. Flores at [phone]. *After Business Hours Contact: the on-call physician for Dr. Flores at or the emergency room. *Pending Lab/Results: Will review at F/U Appt - Referrals/Follow Up *Referrals/Follow Up: Raj Flores MD [Physician] - 08/02/17 4:10 pm (Your appoitment is scheduled for Wednesday, August 02, 2017 at 4:10 at the [facility], [address] [place] [address], [facility] [id number]. Please arrive at 3:50 with insurance card and identification to complete paper work.) Primary Care,You Choose [Primary Care Provider] - - Patient Handouts Patient Handouts: Epididymo-Orchitis (GEN) - Dismissal Complete Discharge Instructions are:: Complete Physician Narrative - Narrative Physician: Livia Farah MD Attestation Narrative: Date: 07/27/17 Time: 10:20 AM-I examined the patient independently. I reviewed this chart, the patient history, and the VACCINE SPECIALIST's/PA's documented findings as above. We discussed and formulated the assessment and plan as above with the additions below.-Dr. Farah The patient states that he's feeling better today. Energy is better. His pain in his scrotum is improving. He has been up walking. He has no new complaints. On exam he is alert and in no acute distress. Chest is clear to auscultation. Cardiovascular reveals a regular rate and rhythm. Abdomen is soft and nontender. exam reveals normal penis without erythema or swelling. Scrotum is a little less indurated and a little less red than yesterday. He also notes that it is not as tender as yesterday. Extremities are free of edema. Impression and plan Epididymitis/orchitis-continue Levaquin as an outpatient. Use NSAIDs for pain control. My physician human resource assistant discussed the patient with Dr. Saul Flores ( urologist) on the phone today and he recommends follow-up as an outpatient with him. He agreed with treatment plan. The patient will also need to establish with a new primary care provider. Patient's other chronic medical problems have been well-controlled during this hospital course.
[2017-07-27] MEDS: BuPROPion XL 150mg (24HR) TABLET PO SCH (09:04)
[2017-07-27] MEDS: LACTOBACILLUS (15B cfu) CAPSULE PO SCH (09:04)
[2017-07-27] MEDS: ENOXAPARIN 40 MG/0.4 ML INJECTION SQ SCH (09:05)
[2017-07-27] MEDS: LISINOPRIL 40 MG TABLET PO SCH (09:05)
[2017-07-27] MEDS: FLUoxetine 20 MG CAPSULE PO SCH (09:05)
== END 2017-07-27 11:40 | disposition home or self-care (01) | DRG 728 ==
LOC: EDHOLD 13:22 → ED 13:22 → MED 17:41 → SUATTDRO 07-24 15:18
PROVIDERS: ADMIT Internal Medicine; ATTEND Internal Medicine